=== PATIENT | female | born 1965 | race Caucasian/White ===

== ENCOUNTER 2020-03-03 09:46 | Emergency (ER) | payer OTHER, SELFPAY ==
--- NOTE | 2020-03-03 09:58 | ED.GENADULT ---
HPI - General Adult General Chief complaint: Skin/Abscess/Foreign Body Stated complaint: rash Time Seen by Provider: 03/03/20 10:00 Source: patient Mode of arrival: ambulatory Limitations: no limitations History of Present Illness HPI narrative: 55-year-old female patient presents to the [facility] with complaints of a rash to bilateral underarms, under bilateral breasts, and in the groin. Patient states the rash has been there for about a week and is very itchy. Patient denies coming into contact with anything that she is allergic to that she is aware of. Patient states she does have a dog at home and is up-to-date on shots. Patient denies any new lotions, soaps or detergents. 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 Denies any fevers, chest pain or shortness of breath. Patient states she has tried [id number] hydrocortisone cream and alcohol to help with the rash and it continues to spread and get worse. Related Data Home Medications Medication Instructions Recorded Confirmed clopidogrel 75 mg DAILY 03/03/20 03/03/20 metoprolol succinate 25 mg PO DAILY 03/03/20 03/03/20 simvastatin 20 mg DAILY 03/03/20 03/03/20 Allergies Allergy/AdvReac Type Severity Reaction Status Date / Time No Known Allergies Allergy Verified 03/03/20 09:51 Review of Systems Review of Systems: Narrative: CONSTITUTIONAL: Denies fever, chills, or sweats. EYES: Denies visual changes, redness, or discharge. ENT: Denies rhinorrhea, congestion, sore throat, or otalgia. CARDIOVASCULAR: Denies chest pain, palpitations, or edema. RESPIRATORY: Denies cough or dyspnea. GASTROINTESTINAL: Denies abdominal pain, nausea, vomiting, or diarrhea. GENITOURINARY: Denies dysuria or hematuria. SKIN: Positive rash with itching. MUSCULOSKELETAL: Denies back pain, joint pain, or myalgia. NEUROLOGIC: Denies headache, numbness, or weakness. PSYCHIATRIC: Denies anxiety or depression. [facility] Past Medical History Medical History (Updated 03/03/20 @ 10:11 by BRYN Antunez) GERD (gastroesophageal reflux disease) Hypercholesterolemia Hypertension Kidney stones Social History Social History (Updated 03/03/20 @ 10:00 by JULIETA Antunez Smoking status: Current every day smoker Gender identity (if verbalized by the patient): Female Comments At the time of my signature I agree with nursing past medical history, surgical, social, and family history. There is no relevant family history pertinent to the presenting complaint. Exam Narrative: Exam Narrative: GENERAL: Well-appearing, well-nourished, and in no acute distress. HEAD: Normocephalic, atraumatic. EYES: PERRLA and EOMI. ENT: Nares clear, no rhinorrhea or epistaxis. Mucous membranes moist. NECK: Supple. No lymphadenopathy CHEST: Clear to auscultation. No respiratory distress. HEART: Regular rate and rhythm. No murmur heard. Normal peripheral pulses. ABDOMEN: Soft, nontender, nondistended, normal active bowel sounds. EXTREMITIES: Normal range of motion. No edema. SKIN: Patient has circular raised papules noted to bilateral axilla, under bilateral breasts, in the folds of the groin area that extends up to the buttocks folds. The areas do appear slightly dry. Papules are various shapes anywhere from 1 cm to 2 cm. There is no open wounds or drainage noted. There is multiple satellite lesions noted. NEURO: No focal deficits. Alert and oriented x3. Course Vital Signs Vital signs: Vital Signs Temperature 36.4 C L 03/03/20 10:00 Pulse Rate 73 03/03/20 10:00 Respiratory Rate 16 03/03/20 10:00 Blood Pressure 147/83 H 03/03/20 10:00 Pulse Oximetry 100 03/03/20 10:00 Temperature 36.4 C L 03/03/20 10:00 Pulse Rate 73 03/03/20 10:00 Respiratory Rate 16 03/03/20 10:00 Blood Pressure 147/83 H 03/03/20 10:00 Pulse Oximetry 100 03/03/20 10:00 Vital sign
[2020-03-03 10:00] VITALS: BP 147/83; PULSE 73; RESP 16; TEMP 36.4; O2SAT 100
== END 2020-03-03 10:15 | disposition home or self-care (01) ==
PROVIDERS: Emergency Provider Nurse Practitioner Family
DX: B35.4 Tinea corporis (principal); I10 Essential (primary) hypertension; F17.200 Nicotine dependence, unspecified, uncomplicated
CPT/HCPCS: 99213; G0463

== ENCOUNTER 2020-03-21 12:36 | Emergency (ER) | payer OTHER, SELFPAY ==
--- NOTE | ~2020-03-21 | XR_ITS ---
EXAMINATION: XR hand RT min 3V INDICATION: Right hand pain after dog bite TECHNIQUE: Three views of the right hand are obtained. COMPARISON: None available FINDINGS: There is no fracture. The joint spaces are normal. Soft tissue swelling of the hand is seen surrounding the metacarpals. Soft tissue swelling is seen overlying the distal radius and ulna. IMPRESSION: 1. Soft tissue swelling overlying the metacarpals and distal radius and ulna without underlying osseo us abnormality. Reviewed, dictated and finalized at location A. IMPRESSION: 1. Soft tissue swelling overlying the metacarpals and distal radius and ulna wi thout underlying osseous abnormality.
--- NOTE | ~2020-03-21 | XR_ITS ---
EXAMINATION: XR forearm RT 2V INDICATION: Right forearm pain after dog bite TECHNIQUE: Two views of the right forearm are obtained. COMPARISON: None available FINDINGS: There is diffuse soft tissue swelling overlying the wrist as well as the metacarpals. No un derlying osseous abnormality is identified. Bone alignment at the wrist and elbow is normal. IMPRESSION: 1. Soft tissue swelling overlying the wrist and metacarpals without underlying osseous abnormality. Reviewed, dictated and finalized at location A.
[2020-03-21 12:39] VITALS: BP 196/94; PULSE 92; RESP 20; TEMP 37.3; O2SAT 97
--- NOTE | 2020-03-21 12:44 | ED.WOUNDLAC ---
HPI - Wound/Laceration General Chief Complaint: Wound/Laceration Stated Complaint: dog bite Time Seen by Provider: 03/21/20 12:43 History of Present Illness HPI narrative: Right hand and forearm were bitten by a bhutanese elizabeth shortly before arrival today. She reports severe pain in the hand and forearm. She has multiple small puncture wounds. Unsure when last tetanus shot was. Related Data Home Medications Medication Instructions Recorded Confirmed clopidogrel 75 mg DAILY 03/03/20 03/03/20 metoprolol succinate 25 mg PO DAILY 03/03/20 03/03/20 simvastatin 20 mg DAILY 03/03/20 03/03/20 Allergies Allergy/AdvReac Type Severity Reaction Status Date / Time No Known Allergies Allergy Verified 03/03/20 09:51 Review of Systems Review of Systems: All systems reviewed & are unremarkable except as noted in HPI and below PMFSH Past Medical History Medical History GERD (gastroesophageal reflux disease) Hypercholesterolemia Hypertension Kidney stones Social History Social History Smoking status: Current every day smoker Gender identity (if verbalized by the patient): Female Exam Const: General: healthy appearing, no acute distress and alert Orientation/consciousness: patient oriented x3 HENMT: Head: normal to inspection Resp: Effort & Inspection: normal respiratory effort Auscultation: clear to auscultation bilaterally Cardio: Rate: regular rate Rhythm: regular rhythm Other: 2+ right radial pulse Skin: Other: many small puncture wounds to the right hand and forearm Neuro: General: patient oriented x3, moves all extremities and CN's II-XI intact bilaterally Speech: normal speech Other: distal sensation intact Extrem: Other: extensive bruising t the right hand and forearm Course Vital Signs Vital signs: Vital Signs Temperature 37.3 C 03/21/20 12:39 Pulse Rate 92 03/21/20 12:39 Respiratory Rate 03/21/20 12:39 Blood Pressure 196/94 H 03/21/20 12:39 Pulse Oximetry 97 03/21/20 12:39 Temperature 37.3 C 03/21/20 12:39 Pulse Rate 86 03/21/20 14:05 Respiratory Rate 18 03/21/20 14:05 Blood Pressure 178/80 H 03/21/20 14:05 Pulse Oximetry 99 03/21/20 14:05 MDM - Wound/Laceration MDM Narrative Medical decision making narrative: No fracture Medical Records Attestation: I reviewed the patient's medical records. Imaging Data Radiologist's impression: ITS Impressions Forearm X-Ray 03/21/20 13:17 IMPRESSION: 1. Soft tissue swelling overlying the wrist and metacarpals without underlying osseous abnormality. Hand X-Ray 03/21/20 13:17 IMPRESSION: 1. Soft tissue swelling overlying the metacarpals and distal radius and ulna without underlying osseous abnormality. Discharge Plan Discharge Clinical Impression: Dog bite of right forearm Qualifiers: Encounter type: initial encounter Qualified Code(s): S51.851A - Open bite of right forearm, initial encounter Patient Disposition: Home, Self-Care Condition: Stable Instructions: Antibiotic Form, Animal Bite (ED) Prescriptions: New amoxicillin-pot clavulanate [Augmentin] 875-125 mg tablet 1 tablet PO Q12H Qty: 10 RF: 0 hydrocodone-acetaminophen [[place]] 5-325 mg tablet 1 tablet PO Q6H PRN (Reason: pain) Qty: 7 RF: 0 No Action clopidogrel 75 mg tablet 75 mg DAILY RF: 0 simvastatin 20 mg tablet 20 mg DAILY RF: 0 metoprolol succinate 25 mg tablet extended release 24 hr 25 mg PO DAILY RF: 0 Follow-up/Referrals: PHYSICIAN,MINE SAFETY DIRECTOR [Primary Care Provider] - Discharge Date/Time: 03/21/20 14:06
--- NOTE | 2020-03-21 12:47 | PC.NURSE ---
RINGS REMOVED FROM HAND VIA RN SHERI, WOUNDS CLEANSED WITH SOAP AND WATER.
[2020-03-21] MEDS: AMOXICILLIN/CLAVULANATE K 875-125 MG TAB 1 TABLET PO (13:23)
[2020-03-21] MEDS: TETANUS,DIPHTHERIA,AC PERTUSSIS ADULT (0.5 ML) BOOSTRIX IM (13:33)
[2020-03-21] MEDS: KETOROLAC 30 MG/ML VIAL (*BKC) IV PUSH (13:47)
[2020-03-21 14:05] VITALS: BP 178/80; PULSE 86; RESP 18; O2SAT 99
== END 2020-03-21 14:06 | disposition home or self-care (01) ==
PROVIDERS: Emergency Provider Emergency Medicine
DX: S51.851A Open bite of right forearm, initial encounter (principal); S61.451A Open bite of right hand, initial encounter; K21.9 Gastro-esophageal reflux disease without esophagitis; E78.00 Pure hypercholesterolemia, unspecified; I10 Essential (primary) hypertension; Z87.442 Personal history of urinary calculi; F17.200 Nicotine dependence, unspecified, uncomplicated; Z23 Encounter for immunization; W54.0XXA Bitten by dog, initial encounter
CPT/HCPCS: 73090; 73130; 90471; 90715; 96374; 99284; A9270; J1885

== ENCOUNTER 2021-04-09 15:39 | Emergency (ER) | payer OTHER, SELFPAY ==
[2021-04-09 15:58] VITALS: BP 138/78; PULSE 74; RESP 16; TEMP 36.8; O2SAT 100
--- NOTE | 2021-04-09 16:46 | ED_ITS ---
HPI - URI/Sore Throat General Chief Complaint: Upper Respiratory Infection Stated Complaint: Cough,Sore Throat History of Present Illness HPI Narrative: Patient request Covid testing after having taken a rapid antigen test, which was negative. Patient been symptomatic mild cough and sore throat for about half week . Remainder of patient HPI unobtainable because patient eloped before completion, at about one hour after arrival. Related Data Home Medications Medication Instructions Recorded Confirmed clopidogrel 75 mg DAILY 03/03/20 04/09/21 metoprolol succinate 25 mg PO DAILY 03/03/20 04/09/21 simvastatin 20 mg DAILY 03/03/20 04/09/21 Allergies Allergy/AdvReac Type Severity Reaction Status Date / Time No Known Allergies Allergy Verified 04/09/21 16:03 Review of Systems Review of Systems: ROS unobtainable: Yes unobtainable due to mental status (/ patient eloped ) [facility] Past Medical History Medical History (Updated 03/22/20 @ 00:00 by Gal Roque) GERD (gastroesophageal reflux disease) Hypercholesterolemia Hypertension Kidney stones Social History Social History Smoking status: Current every day smoker Gender identity (if verbalized by the patient): Female Comments Unobtainable due to patient eloped Exam Narrative: Unobtainable as patient eloped Course Vital Signs Vital signs: Vital Signs Temperature 98.2 F 04/09/21 15:58 Pulse Rate 74 04/09/21 15:58 Respiratory Rate 16 04/09/21 15:58 Blood Pressure 138/78 04/09/21 15:58 Pulse Oximetry 100 04/09/21 15:58 Temperature 98.2 F 04/09/21 15:58 Pulse Rate 74 04/09/21 15:58 Respiratory Rate 16 04/09/21 15:58 Blood Pressure 138/78 04/09/21 15:58 Pulse Oximetry 100 04/09/21 15:58 Discharge Plan Discharge Patient Disposition: Elopement After Seen by Prov Condition: Stable Prescriptions: No Action clopidogrel 75 mg tablet 75 mg DAILY RF: 0 simvastatin 20 mg tablet 20 mg DAILY RF: 0 metoprolol succinate 25 mg tablet extended release 24 hr 25 mg PO DAILY RF: 0 hydrocodone-acetaminophen [[place]] 5-325 mg tablet 1 tablet PO Q6H PRN (Reason: pain) Qty: 7 RF: 0 Follow-up/Referrals: PHYSICIAN,YOUTH CARE SPECIALIST [Primary Care Provider] -
--- NOTE | 2021-04-09 16:56 | PC.NURSE ---
PT REPORTS SHE IS LEAVING, STATES SHE IS TIRED OF WAITING. EXPLAINED MULTIPLE TIMES THAT THERE IS ONLY ONE PROVIDER AND HE WOULD BE IN SOON HE WAS AVAILABLE. PT DID NOT WANT TO WAIT.
== END 2021-04-09 16:45 | disposition left against medical advice (07) ==
PROVIDERS: Emergency Provider Internal Medicine Hematology & Oncology
DX: R05 Cough (principal); J02.9 Acute pharyngitis, unspecified; K21.9 Gastro-esophageal reflux disease without esophagitis; E78.00 Pure hypercholesterolemia, unspecified; I10 Essential (primary) hypertension; F17.200 Nicotine dependence, unspecified, uncomplicated
CPT/HCPCS: 99211; G0463

== ENCOUNTER 2024-08-15 13:46 | Emergency (ER) | payer OTHER, SELFPAY ==
--- NOTE | 2024-08-15 13:49 | ED.URI ---
HPI - URI/Sore Throat General Chief Complaint: Upper Respiratory Infection Stated Complaint: cough,congestion Time Seen by Provider: 08/15/24 14:11 Source: patient and RN notes reviewed Mode of arrival: ambulatory Limitations: no limitations History of Present Illness HPI Narrative: 59-year-old female with history of smoking with 3 week history of cough. She reports productive cough, shortness of breath and sinus congestion for 3 weeks. She reports she saw her hemstitching machine operator who did an EKG and blood work which were all normal. MD elicited complaint: cough Related Data Home Medications ?Medication ?Instructions ?Recorded ?Confirmed ?Last Taken ?Type clopidogrel 75 mg tablet 75 mg DAILY 03/03/20 04/09/21 Unknown History metoprolol succinate 25 mg 25 mg PO DAILY 03/03/20 04/09/21 Unknown History tablet,extended release 24 hr simvastatin 20 mg tablet 20 mg DAILY 03/03/20 04/09/21 Unknown History nitroglycerin 0.4 mg sublingual mg 08/15/24 Unknown History tablet rosuvastatin 10 mg tablet mg 08/15/24 Unknown History Allergies Allergy/AdvReac Type Severity Reaction Status Date / Time No Known Allergies Allergy Verified 08/15/24 13:58 Review of Systems Review of Systems: CONSTITUTIONAL: Denies malaise, chills, sweats, or fever. EYES: Denies visual changes, redness, or discharge. ENT: Reports rhinorrhea, congestion. Denies sinus pain, otalgia and sore throat. CARDIOVASCULAR: Denies chest pain, palpitations, or edema. RESPIRATORY: Reports cough, dyspnea. GASTROINTESTINAL: Denies abdominal pain, nausea, vomiting, diarrhea SKIN: Denies rash or itching. MUSCULOSKELETAL: Denies myalgia. NEUROLOGIC: Denies headache. All systems reviewed & are unremarkable except as noted in HPI and below PMFSH Past Medical History Medical History (Updated 08/15/24 @ 14:20 by Heydi Boob NP) Kidney stones GERD (gastroesophageal reflux disease) Hypertension Hypercholesterolemia Social History Social History Smoking status: Current every day smoker Gender identity (if verbalized by the patient): Female Comments At time of signature, agree with nursing past medical, surgical, social and family history. There is no relevant family history pertinent to the presenting complaint Exam Narrative: GENERAL: Well-appearing, well-nourished, and in no acute distress. HEAD: Normocephalic EYES: PERRLA, conjunctivae clear ENT: Nares clear. Mucous membranes moist. TM pearly scruggs with dull light reflex bilaterally; no tragal tenderness. Oropharynx not erythematous without lesions. Tonsils not enlarged and without exudate, no drooling, no hoarseness, no trismus, uvula midline. NECK: Supple. No lymphadenopathy CHEST: Clear to auscultation, breath sounds equal. Upper airway wheeze noted. No Rhonchi, rales, or stridor. No respiratory distress, speaks in full sentences. HEART: Regular rate and rhythm. No murmur heard. SKIN: Warm, dry, no rash. NEURO: Alert and oriented x3. PSYCH: Normal mood and affect Course Course Emergency Course: Patient is aware of diagnosis, understands and agrees to treatment plan. Anticipatory guidance given. Patient agrees to follow-up as directed and is aware of reasons to seek care at the emergency department. Portions of this record may have been created with voice recognition software Level of Care: Express Care Visit Vital Signs Vital signs: Reviewed. MDM - URI/Sore Throat MDM Narrative Medical decision making narrative: Differential diagnosis considered: Larios virus, strep pharyngitis, allergic rhinitis, upper respiratory tract infection, sinusitis, rhinosinusitis, nasopharyngitis. viral pharyngitis, otitis media, otitis externa, pneumonia, bronchitis, viral cough syndrome, viral syndrome, and influenza. Exam findings show no acute concerns or changes; patient is non-toxic appearing and is in no distress. Patient is appropriate for outpatient treatment and follow-up. Lab Data Attestation: I reviewed the patient's lab results. Critical Care Time Critical Care Time Critical Care Time: No Discharge Plan Discharge Clinical Impression: Lower respiratory tract infection Patient Disposition: Home, Self-Care Condition: Stable Instructions: How to Use a Metered-Dose Inhaler (ED) Additional Instructions: Take medication as prescribed Recommend antihistamine such as Benadryl at night time and Zyrtec or Katey during the day Use inhaler as needed for cough, wheezing, shortness of breath or chest tightness. Also, recommend symptomatic treatment includes: rest, fluids, and increase humidity of the air at home. Recommend Acetaminophen as directed on the bottle to reduce fever, pain, headache. Avoid smoking/second-hand smoke. Please schedule a follow-up visit with your personal physician for further evaluation and treatment within 3-5days. Including recheck and discussion of your blood pressure. If your symptoms persist, change or worsen significantly before you can contact your personal physician then please, without delay, go to the emergency department for further evaluation. Patient Language: Malay Prescriptions: New azithromycin [Zithromax Z-Srinivasan] 250 mg tablet See Rx Instructions .ROUTE .COMPLEX Qty: 6 0RF Rx Instructions: take 500 mg today (day 1), then 250 mg for 4 days (days 2-5) prednisone 20 mg tablet 40 mg PO DAILY 5 Days Qty: 10 0RF albuterol sulfate 90 mcg/actuation HFA aerosol inhaler 2 puff INHALATION QID PRN (Reason: shortness of breath or wheezing) Qty: 8.5 0RF No Action clopidogrel 75 mg tablet 75 mg DAILY simvastatin 20 mg tablet 20 mg DAILY metoprolol succinate 25 mg tablet extended release 24 hr 25 mg PO DAILY nitroglycerin 0.4 mg tablet, sublingual rosuvastatin 10 mg tablet Follow-up/Referrals: PHYSICIAN,BULB TESTER [Primary Care Provider] - Time of Disposition: 14:20
[2024-08-15 13:57] VITALS: BP 142/90; PULSE 84; RESP 18; TEMP 36.6; O2SAT 95
== END 2024-08-15 14:25 | disposition home or self-care (01) ==
PROVIDERS: Emergency Provider Nurse Practitioner
DX: J22 Unspecified acute lower respiratory infection (principal); F17.200 Nicotine dependence, unspecified, uncomplicated; I10 Essential (primary) hypertension; E78.00 Pure hypercholesterolemia, unspecified; K21.9 Gastro-esophageal reflux disease without esophagitis
CPT/HCPCS: 99213; G0463

== ENCOUNTER 2025-02-06 13:16 | Inpatient (IN) | payer OTHER, SELFPAY ==
[2025-02-06] VITALS (11 sets, daily range): BP systolic 134–163; BP diastolic 68–98; PULSE 53–88; RESP 12–19; TEMP 36.4–37; O2SAT 93–96; BMI 21.8
--- NOTE | ~2025-02-06 | XR_ITS ---
EXAM/PROCEDURE: XR chest 2V - 02/06/2025 14:10 CDT HISTORY: 60 years old Female with cp TECHNIQUE: Two view(s) of the chest. COMPARISON: None available. FINDINGS: LUNGS/ PLEURA: Mild vascular congestion and bilateral alveolar opacities. Infection cannot be exclude d. Mild elevation of right hemidiaphragm causing compressive atelectasis along with right basilar sca rring. HEART/ MEDIASTINUM: Heart appears normal in size. BONES: No acute osseous abnormality. OTHER: Visualized upper abdomen is unremarkable. IMPRESSION: Mild vascular congestion and bilateral alveolar opacities. Infection cannot be excluded. Short-term f ollow-up chest radiograph is recommended after appropriate clinical therapy to document resolution. Reviewed, dictated and finalized at location A. IMPRESSION: Mild vascular congestion and bilateral alveolar opacities. Infection cannot be excluded. Short-term follow-up chest radiograph is recommended after appropriat e clinical therapy to document resolution.
--- NOTE | ~2025-02-06 | CT_ITS ---
CTA chest PE protocol Ordering provider: Larry Castanon MD History: 60 years Female with . Exertional shortness of breath . Comparison: None. Technique: CT angiogram chest was performed following timed intravenous injection of contrast. Thin s lice axial images and reformatted coronal images were obtained. Three dimensional reformatted images of the chest were also obtained using a [employer] workstation. . Automated exposure control and iterati ve reconstruction technique were employed. The dose-length product was 337.42 mGy-cm. 100 mL Omnipaqu e 350 was given IV Findings: PULMONARY ARTERIES: No pulmonary embolus. VISUALIZED THORACIC INLET: Normal. MEDIASTINUM: Aorta/coronary arteries: Mild atheromatous disease. Heart/other: The heart is not enlarged. Lymph nodes: Soft tissue mass is seen in the azygos vein area, paratracheal area and subcarinal area which may indicate a mass or lymphadenopathy. This mass measures 6.2 x 3.2 x 6.8 cm. Slight narrowing of the trachea is seen in the area . Narrowing of the right main pulmonary artery is also noted. LUNGS: Tree-in-bud appearance seen in the right upper lobe suggestive of infection. Groundglass nodules are less likely. Pneumonia versus atelectasis versus fibrotic changes in the right lower lobe is seen. Un derlying mass cannot be excluded with extension to the area of the esophagus. None opacification of the veins is seen in the area which may indicate thrombosis. . No pneumothorax. VISUALIZED UPPER ABDOMEN: Sliding hiatus hernia. Otherwise, the visualized upper abdomen is normal. MUSCULOSKELETAL: Soft tissues: The superficial soft tissues are normal. Bones: Age appropriate degenerative changes of the spine. IMPRESSION: 1. No pulmonary embolism. 2. Mass seen in the right paratracheal and subcarinal areas with extension to the right hilum. Furth er evaluation advised. The mass is occluding the right main bronchus and causing some compression of the right pulmonary artery. 3. Atelectasis versus pneumonia versus fibrotic changes in the right lower lobe with minimal opacifi cation of the bases suggestive of thrombosis. 4. Focal areas of tree-in-bud appearance in the right upper lobe suggestive of infection. Follow-up advised. 5. Sliding hiatus hernia. Reviewed, dictated and finalized at location A. IMPRESSION: 1. No pulmonary embolism. 2. Mass seen in the right paratracheal and subcarinal areas with extension to the right hilum. Further evaluation advised. The mass is occluding the right ma in bronchus and causing some compression of the right pulmonary artery. 3. Atelectasis versus pneumonia versus fibrotic changes in the right lower lob e with minimal opacification of the bases suggestive of thrombosis. 4. Focal areas of tree-in-bud appearance in the right upper lobe suggestive of infection. Follow-up advised. 5. Sliding hiatus hernia.
--- NOTE | 2025-02-06 13:22 | ECG_ITS ---
Test Date: 2025-02-06 13:31:21 Measurements Intervals [place] Rate: 71 P: 64 AK: 146 QRS: 77 QRSD: 75 T: 81 QT: 391 QTc: 425 Interpretive Statements SINUS RHYTHM MODERATE ST DEPRESSION [0.05+ mV ST DEPRESSION] No previous ECG available for comparison Electronically Signed On 02-07-2025 11:35:29 CDT by Matthew Rocha M.D.
--- OUTSIDE RECORDS SUMMARY | 2025-02-06 13:28 | XMS_ITS | Referral Summary ---
Author Organization [facility] [address] Address [address] [place] [address] Care Team Providers Care Supervisor Knitting Name Role Phone Emily Calderon Primary Care Provider [phone] Allergies No known active allergies Medications aspirin (ASPIR-LOW) 81 mg tablet take 1 Tablet by oral route every day 0 0 02/04/20 16 Active nitroglycerin (NITROSTAT) 0.4 mg SL tabletIndicati ons:Coronary artery disease involving [place] coronary artery of [place] heart without angina pectoris Place 1 tablet (0.4 mg total) under the tongue every 5 (five) minutes as needed for chest pain Up to 3 doses, then call ambulance 25 tablet 3 08/09/19 25 Active multivitamin tabletIndicati ons:Vitamin Deficiency Prevention Take 1 tablet by mouth daily Active metoprolol XL (TOPROL-XL) 25 mg extended release tablet Take 1 tablet by mouth once daily 90 tablet 12/07/19 25 Active clopidogreL (PLAVIX) 75 mg tablet Take 1 tablet by mouth once daily 90 tablet 1 01/22/20 25 Active rosuvastatin (CRESTOR) 10 mg tablet Take 1 tablet by mouth once daily 90 tablet 1 01/30/20 25 Active clopidogreL (PLAVIX) 75 mg tablet Take 1 tablet by mouth once daily 90 tablet 10/30/19 25 025 Discontinued rosuvastatin (CRESTOR) 10 mg tablet Take 1 tablet by mouth once daily 90 tablet 11/07/19 25 025 Discontinued Active Problems Problem Noted Date Diagnosed Date Coronary artery disease invo lving [place] coronary artery of [place] heart without angina pectoris 08/04/2017 History of coronary artery stent placement 08/04 Immunizations Immunization Administration Dates Next Due Pfizer SARS-CoV-2 Monovalent Vaccination (12+ Yrs) PURPLE 05/22/2021 Social History Tobacco Use Types Packs/Day Years Used Date Smoking Tobacco: Light Smoker Smokeless Tobacco: Never Tobacco Cessation:Ready to Q uit: Not Asked; Counseling Given: Not Answered Comments:Smoking History Packs/day: 8 Cigarettes Alcohol Use Standard Drinks/Week Comments No 0 (1 standard drink = 0.6 oz pur e alcohol) Comments Unknown Sex and Gender Information Value Date Recorded Sex Assigned at Not on file Legal Sex Female 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 Gender Identity Not on file Sexual Orientation Not on file Last Filed Vital Signs Vital Sign Reading Time Taken Comments Blood Pressure 130/72 08/09/2024 10:59 AM LINDERMAN OPERATOR Pulse 76 08/09/2024 10:59 AM LINDERMAN OPERATOR Temperature - - Respiratory Rate - - Oxygen Saturation 95% 08/09/2024 10:59 AM LINDERMAN OPERATOR Inhaled Oxygen Concentration - - Weight 85.7 kg (189 lb) 08/09/2024 10:59 AM LINDERMAN OPERATOR Height 180.3 cm (5' 11) 08/09/2024 10:59 AM LINDERMAN OPERATOR Body Mass Index 26.36 08/09/2024 10:59 AM LINDERMAN OPERATOR Plan of Treatment Not on file Insurance [facility] Care Teams Supervisor Knitting Relationship Specialty Start Date End Date Emily Calderon PA [facility] [place] [address] PCP - General Physician Crusher Setter 05/31/23
--- OUTSIDE RECORDS SUMMARY | 2025-02-06 13:28 | XMS_ITS | Clinical Summary ---
Author Organization [facility] Address [address] [place], [place] [id number] Care Team Providers Care Tool And Die Maker Name Role Phone Unavailable Primary Care Provider Unavailabl e Social History Tobacco Use Types Packs/Day Years Used Date Smoking Tobacco: Never Assessed Comments Unknown Sex and Gender Information Value Date Recorded Sex Assigned at Not on file Legal Sex Female 7:11 PM CDT Gender Identity Not on file Sexual Orientation Not on file Plan of Treatment Health Maintenance Due Date Last Done Comments Cervical Cancer Screening Pa p Smear (Age 30 to 64) Every 3 Years 1964 Colorectal Cancer Screening Colonoscopy (10 Years) 1964 Annual Physical 01/08/1967 Hepatitis C 01/08/1982 DTaP, Tdap and Td Vaccines ( 1 - Tdap) 01/08/1983 Cervical Cancer Screening Pa p with HPV Testing (Age 30 to 64) Every 5 Years 01/08/1994 Cervical Cancer Screening with HPV 01/08/1994 Mammogram Screening 2004 Pneumococcal Vaccine: 50+ Ye ars (1 of 1 - PCV) 01/08/2014 Zoster Vaccines (1 of 2) 01/08/2014 COVID-19 Vaccine (2023-2 5 season) 2024 RSV Immunization or 60+ Years (1 - 1-dose 75+ series) 01/08/2039 Meningococcal B Vaccine Aged Out No l onger eligible based on patient's age to complete this topic Meningococcal Vaccine Aged Out No martinez sonya eligible based on patient's age to complete this topic RSV Immunizations Under 20 Months Aged Out No longer eligible based on patient's age to complete this topic
--- OUTSIDE RECORDS SUMMARY | 2025-02-06 13:28 | XMS_ITS | Clinical Summary ---
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 Gender Identity Not on file Sexual Orientation Not on file Plan of Treatment Health Maintenance Due Date Last Done Comments Hepatitis C Virus (HCV) Screening 1965 Pap Smear 01/08/1985 Cervical Cancer Screening (CCS) 01/08/1994 HPV/Cotest 01/08/1994 Cologuard 01/08/2009 Colonoscopy 01/08/2009 Colorectal Cancer Screening 01/08/2009 Immunochemical Fecal Occult Blood 01/08/2009 Zoster Immunization (1 of 2) 01/08/2014 Pneumococcal Immunization (5 0+ years) (2 of 2 - PPSV23) 04/29/2018 04/29/2017 SARS-COV-2 Immunization ( - season) 2024 10/19/2020, 09/28/2020 Influenza Immunization (#1) 04/01/202505/02, 04/29/2017 Respiratory Syncytial Virus (RSV) Immunization (Adult) (1 - 1-dose 75+ series) 01/08/2039 Pneumococcal Immunization Combined Discontinued 04/29/2017 DTaP/Tdap/Td Immunization Discontinued 2019, 05/03/2017 TdaP Immunization Completed 03/21/2020, 05/03/2017 Hepatitis B Immunization Aged Out No longer eligible based on patient's age to complete this topic Human Papillomavirus (HPV) Immunization Aged Out No longer eligible based on patient's age to complete this topic Meningococcal Immunization (ACWY) Aged Out No longer eligible based on patient's age to complete this topic Rotavirus Immunization Aged Out No lo nger eligible based on patient's age to complete this topic
--- OUTSIDE RECORDS SUMMARY | 2025-02-06 13:28 | XMS_ITS | Data Portability ---
Author Organization Rachel MOSS Address [address] [place] [address] Assessment No assessment recorded. Plan of Treatment Reminders Order Date Submit Date Provider Last Modified By Organization Details Last Modified Time Details Appointments None recorded . Lab lipid panel, serum 2022 023 ANNABELLA CAMPO, Jamison Nguyen, [facility] [address], [place], [address], 06:17:54 HbA1c (hemoglo bin A1c), blood 2022 023 ANNABELLA ALBER, Jamison rod Nguyen, [address], [place], [address], 3 13:10:36 CMP, serum or plasma 2022 023 ANNABELLA CAMPO, Jamison rod Nguyen, [facility] [address], [place], [address], 3 06:17:54 TSH, ultra-se nsitive, serum 2022 023 ANNABELLA CAMPO, Jamison rod Nguyen, [address], [place], [address], 3 13:10:35 CBC w/ auto diff 2022 023 ANNABELLA ALBER, Jamison rod Nguyen, [facility] [address], [place], [address], 3 06:17:55 vitamin D, 25-hydro xy, total, serum 2022 023 ANNABELLA CAMPO, Jamison Nguyen, [address], [place], [address], 3 13:10:37 pap, IG + HPV, cervical 2022 023 ANNABELLA [facility], Jamison Nguyen, [address], [place], [address], 3 10:16:12 pap, IG + reflex HR HPV (16+18) 2016 017 ANNABELLA GARZA, Jamison Nguyen, [address], [place], [address], 7 08:21:09 lipid panel, serum 2016 017 [facility], Jamison Nguyen, [address], [place], [address], 7 10:30:54 CMP, serum or plasma 2016 017 ANNABELLA GARZA, Jamison Nguyen, [address], [place], [address], 7 10:30:54 TSH, ultra-se nsitive, serum 2016 017 [facility]A [facility], Jamison rod Nguyen, [address], [place], [address], 7 10:30:55 lipid panel, serum 2016 017 ANN[facility]ELLA [facility], Jamison Nguyen, [address], [place], [address], 7 12:04:40 TSH, ultra-se nsitive, serum 2016 017 [facility], [address] [facility], [address], [place], [address], 7 12:04:41 CMP, serum or plasma 2016 017 [facility], [address] [facility], [address], [place], [address], 7 12:04:42 Referral colonosc opy referral 2016 017 ATHENAFAX Not available 7 13:14:[address] referral - Please eval and treat 51 year old female with four year history of GERD and non-bloo dy emesis. 2016 017 ATHENAFAX Not available 7 13:13:59 Procedures None recorded . Surgeries None recorded . Imaging MAMMO, screenin g, digital, bilatera l - Prior abnormal mammogra m back in 2015, asymmetr y noted on the R breast 2022 023 [facility] [place] [place] [place] [address], [address] [place] [address] [address], [place], [address], 3 13:31:08 Medication Orders albutero l sulfate HFA 90 mcg/actu ation aerosol inhaler 2022 023 [facility], [address] [place], [address], 3 09:16:51 naproxen 500 mg tablet 2022 023 [facility], [facility], [place], [address], 3 09:06:20 amoxicil nadira 875 mg-potas sium clavulan ate 125 mg tablet 2016 017 Count includes the [facility], [address] [place], [address], 3 08:35:18 Flonase Allergy Relief 50 mcg/actu ation nasal spray,mccabe spension 2016 017 [facility], [address] [place], [address], 3 08:36:09 Kenalog 40 mg/mL suspensi on for injectio n 2016 017 renedelacruzma Not available 3 08:35:54 omeprazo le 20 mg capsule, delayed release 2016 017 Count includes the [facility], [address] [place], [address], 3 08:36:28 Patient TargetsNo targets recorded. Patient Instructions Encounter Date Encounter Id Patient Instructions Last Modified By Organization Details Last Modified Time 03/01/2023 [id number] A healthy lifestyle: care instructions Not available 03/01/2023 09:47:53 learning about menopause Not available 03/01/2023 09:50:33 hot flashes duri ng menopause: care instructions Not available 03/01/2023 09:50:33 preventing osteoporosis: care instructions Not available 03/01/2023 09:50:33 04/29/2023 [id number] A healthy lifestyle: care instructions Not available 04/29/2023 09:05:56 Quitting Tobacco : Care Instructions Not available 04/29/2023 09:21:46 Learning About Benefits of Quitting Smoking Not available 04/29/2023 09:21:46 back pain: care instructions Not available 04/29/2023 09:20:58 sciatica: care instructions Not available 04/29/2023 09:20:58 piriformis syndrome: care instructions Not available 04/29/2023 09:20:58 piriformis syndrome: exercises Not available 04/29/2023 09:20:58 sciatica: exercises Not available 04/29/2023 09:20:58 acute low back pain: exercises Not available 04/29/2023 09:20:58 human papillomavirus (HPV): care instructions Not available 04/29/2023 09:05:56 HPV (human papillomavirus) vaccine: what you need to know Not available 04/29/2023 09:05:57 learning about menopause Not available 04/29/2023 09:05:56 hot flashes duri ng menopause: care instructions Not available 04/29/2023 09:05:56 preventing osteoporosis: care instructions Not available 04/29/2023 09:05:56 Reason for Referral Please eval and treat 51 yea r old female with four year history of GERD and non-bloody emesis. Referring Physician: Carlos Garcia [employer], Encounter Date: 09/27/2016 Colonoscopy Referral for Scr eening colonoscopy Referring Physician: Carlos Garcia [employer], Encounter Date: 09/27/2016 Results Created Date Observation Date Name Description Value Unit Range Abnormal Flag Note LastModifiedBy Organization Detail LastModifiedTime 01/14/20 17 01/17/2017 pap, IG + refle x HR HPV (16+1 8) diagnosis: COMMEN T NEGAT CAMMIE FOR INTRA EPITH ELIAL LESJESSICA N AND NAN CRABTREE . Not Available [facility] ([facility]) [address] [place], [address], 01/20/2017 08:21:09 01/14/20 17 01/17/2017 pap, IG + refle x HR HPV (16+1 8) specimen adequacy: COMMEN T SATIS FACTO RY FOR EVALU ATION . ENDOC ERVIC AL AND/O R SQUAM OUS METAP LASTI C CELLS (ENDO CERVI DINAH COMPO NENT) ARE PRESE NT. Not Available [facility] ([facility]) [address] [place], [address], 01/20/2017 08:21:09 01/14/20 17 01/17/2017 pap, IG + refle x HR HPV (16+1 8) clinician provided ICD10: OSWALD Salas Z01.4 19 I10 Not Available [facility] ([facility]) [address] [place], [address], 01/20/2017 08:21:09 01/14/20 17 01/17/2017 pap, IG + refle x HR HPV (16+1 8) performed by: OSWALD CARLISLE , MARISOL Salas (ASCP ) Not Available [facility] ([facility]) [address] [place], [address], 01/20/2017 08:21:09 01/14/20 17 01/17/2017 pap, IG + refle x HR HPV (16+1 8) . . Not Available [facility] ([facility]) [address] [place], [address], 01/20/2017 08:21:09 01/14/2001/17/2017 pap, IG + refle x HR HPV (16+1 8) note: OSWALD Salas THE PAP SMEAR IS A SCREE GORAN TEST DESIG ANGIE TO AID IN THE DETEC TION OF CECE LIGNA NT AND MALIG NANT CONDI TIONS OF THE UTERI NE CERVI X. IT IS NOT A DIAGN OSTIC PROCE DURE AND SHOUL D NOT BE USED THE SOLE MEANS OF DETEC TING CERVI DINAH CANCE R. BOTH FALSE -POSI TIVE AND FALSE -NEGA TIVE REPOR TS DO OCCUR . Not Available [facility] ([facility]) [address] [place], [address], 01/20/2017 08:21:09 01/14/2001/17/2017 pap, IG + refle x HR HPV (16+1 8) test methodology: OSWALD Salas THIS LIQUI D BASED THINP REP(R ) PAP TEST WAS SCREE ANGIE WITH THE USE OF AN IMAGE GUIDE Fer Simmons. Not Available [facility] ([facility]) [address] [facility] [place], [address], 01/20/2017 08:21:09 01/14/20 17 01/18/2017 pap, IG + refle x HR HPV (16+1 8) HPV, high-risk POSITI VE negati ve abnormal THIS HIGH- RISK HPV TEST DETEC TS THIRT EEN HIGH- RISK TYPES (16/1 8/31/ 33/35 /39/4 5/51/ 52/56 /58/5 9/68) WITHO UT DIFFE RENTI ATION . Not Available [facility] ([facility]) [address] [place], [address], 01/20/2017 08:21:09 01/14/20 17 01/20/2017 pap, IG + refle x HR HPV (16+1 8) HPV genotype, 16 NEGATI VE negati ve Not Available [facility] ([facility]) [address] [place], [address], 01/20/2017 08:21:09 01/14/20 17 01/20/2017 pap, IG + refle x HR HPV (16+1 8) HPV genotype, 18 NEGATI VE negati ve Not Available [facility] ([facility]) [address] [place], [address], 01/20/2017 08:21:09 03/01/20 23 03/03/2023 IGP, APTIM A HPV HPV aptima Positi ve negati ve abnormal This nucle ic acid ampli ficat ion test detec ts fourt een high- risk HPV types (16,1 8,31, 33,35 ,39,4 5,51, 52,56 ,58,5 9,66, 68) witho ut diffe renti ation . Not Available [facility] ([facility]) [address] [place], [address], 03/04/2023 10:16:12 03/01/20 23 03/04/2023 IGP, APTIM A HPV diagnosis: Commen t NEGAT CAMMIE FOR INTRA EPITH ELIAL LESIO N OR MALIG LEYDA . Not Available [facility] ([facility]) [address] [place], [address], 03/04/2023 10:16:12 03/01/20 23 03/04/2023 IGP, APTIM A HPV specimen adequacy: Oswald salas Satis facto ry for evalu ation . Endoc ervic al and/o r squam ous metap lasti c cells (endo cervi dinah compo nent) are prese nt. Not Available [facility] ([facility]) [address] [place], [address], 03/04/2023 10:16:12 03/01/20 23 03/04/2023 IGP, APTIM A HPV clinician provided ICD10: Oswald salas Z01.4 19 Not Available [facility] ([facility]) [address] [place], [address], 03/04/2023 10:16:12 03/01/20 23 03/04/2023 IGP, APTIM A HPV performed by: Marisol Campos (ASCP ) Not Available [facility] ([facility]) [address] [place], [address], 03/04/2023 10:16:12 03/01/20 23 03/04/2023 IGP, APTIM A HPV . . Not Available [facility] ([facility]) [address] [place], [address], 03/04/2023 10:16:12 03/01/20 23 03/04/2023 IGP, APTIM A HPV note: Oswald salas The Pap smear is a scree goran test desig angie to aid in the detec tion of cece ligna nt and malig nant condi tions of the uteri ne cervi x. It is not a diagn ostic proce dure and shoul d not be used as the sole means of detec ting cervi dinah cance r. Both false -posi tive and false -nega tive repor ts do occur . Not Available [facility] ([facility]) [address] [facility], [place], [address], 03/04/2023 10:16:12 03/01/20 23 03/04/2023 IGP, APTIM A HPV test methodology: Commen t This liqui d based ThinP rep(R ) pap test was connore angie with the use of an image guide d syste m. Not Available [facility] ([facility]) [address] [facility], [place], [address], 03/04/2023 10:16:12 05/18/2005/18/2023 LIPID PANEL cholesterol, total 215 mg/dL 100-19 9 above high normal Not Available [facility] [address] [place] [address], [address], 05/19/2023 06:17:54 05/18/2005/18/2023 LIPID PANEL triglyceride s 119 mg/dL 0-149 Not Available [facility] [address] [place], [address], 05/19/2023 06:17:54 05/18/2005/18/2023 LIPID PANEL HDL cholesterol 61 mg/dL 40-999 Not Available [facility] [address] [place], [address], 05/19/2023 06:17:54 05/18/2005/18/2023 LIPID PANEL VLDL cholesterol dinah 24 mg/dL 5-40 Not Available [facility] [address] [place], [address], 05/19/2023 06:17:54 05/18/2005/18/2023 LIPID PANEL LDL chol calc ([facility]) 147 mg/dL 0-99 above high normal Not Available [facility] [address] [place], [address], 05/19/2023 06:17:54 05/18/20 23 05/18/2023 COMP. METAB OLIC PANEL (14) glucose 100 mg/dL 70-99 above high normal Not Available [facility] [address] [place], [address], 05/19/2023 06:17:54 05/18/20 23 05/18/2023 COMP. METAB OLIC PANEL (14) BUN 14 mg/dL 6-24 Not Available [facility] [address] [place], [address], 05/19/2023 06:17:54 05/18/2005/18/2023 COMP. METAB OLIC PANEL (14) creatinine 1.22 mg/dL 0.76-1 .27 Not Available [facility] [address] [place] [address], [address], 05/19/2023 06:17:54 05/18/2005/18/2023 COMP. METAB OLIC PANEL (14) eGFR 51 >=60 below low normal Units for eGFR value s are mL/mi n/1.7 3 The eGFR Calcu latio n has not been valid ated for patie nts under the age of 18. If test resul ts are displ ayed for a patie nt under the age of 18, disre zuly that value . Not Available [facility] [address] [place], [address], 05/19/2023 06:17:54 05/18/20 23 05/18/2023 COMP. METAB OLIC PANEL (14) BUN/creatini ne ratio 12 9-23 Not Available [facility] [address] [place], [address], 05/19/2023 06:17:54 05/18/20 23 05/18/2023 COMP. METAB OLIC PANEL (14) sodium 136 mmol/ L 134-14 4 Not Available [facility] [address] [place], [address], 05/19/2023 06:17:54 05/18/20 23 05/18/2023 COMP. METAB OLIC PANEL (14) potassium 5.5 mmol/ L 3.5-5. 2 above high normal Not Available [facility] [address] [place], [address], 05/19/2023 06:17:54 05/18/2005/18/2023 COMP. METAB OLIC PANEL (14) chloride 99 mmol/ L 96-106 Not Available [facility] [address] [place], [address], 05/19/2023 06:17:54 05/18/2005/18/2023 COMP. METAB OLIC PANEL (14) carbon dioxide, total 26 mmol/ L 20-29 Not Available [facility] [address] [place], [address], 05/19/2023 06:17:54 05/18/2005/18/2023 COMP. METAB OLIC PANEL (14) calcium 10.0 mg/dL 8.7-10 .2 Not Available [facility] [address] [place], [address], 05/19/2023 06:17:54 05/18/20 23 05/18/2023 COMP. METAB OLIC PANEL (14) protein, total 7.2 g/dL 6.0-8. 5 Not Available [facility] [address] [place], [address], 05/19/2023 06:17:54 05/18/2005/18/2023 COMP. METAB OLIC PANEL (14) albumin 4.9 g/dL 3.8-4. 9 Not Available [facility] [address] [place], [address], 05/19/2023 06:17:54 05/18/20 23 05/18/2023 COMP. METAB OLIC PANEL (14) globulin, total 2.3 g/dL 1.5-4. 5 Not Available [facility] [address] [place], [address], 05/19/2023 06:17:54 05/18/20 23 05/18/2023 COMP. METAB OLIC PANEL (14) A/G ratio 2.0 1.2-2. 2 Not Available [facility] [address] [place], [address], 05/19/2023 06:17:54 05/18/2005/18/2023 COMP. METAB OLIC PANEL (14) bilirubin, total 0.3 mg/dL 0.0-1. 2 Not Available [facility] [address] [place], [address], 05/19/2023 06:17:54 05/18/2005/18/2023 COMP. METAB OLIC PANEL (14) alkaline phosphatase 95 IU/L 44-121 Not Available [facility] [address] [place], [address], 05/19/2023 06:17:54 05/18/2005/18/2023 COMP. METAB OLIC PANEL (14) AST (SGOT) 17 IU/L 0-40 Not Available [facility] [address] [place], [address], 05/19/2023 06:17:54 05/18/20 23 05/18/2023 COMP. METAB OLIC PANEL (14) ALT (SGPT) 18 IU/L 0-32 Not Available [facility] [address] [place], [address], 05/19/2023 06:17:54 05/18/2005/18/2023 CBC WITH DIFFE RENTI AL/PL ATELE T WBC 8.3 x10e3 /uL 3.4-10 .8 Not Available [facility] [address] [place] [address], [address], 05/19/2023 06:17:55 05/18/2005/18/2023 CBC WITH DIFFE RENTI AL/PL ATELE T RBC 4.62 x10e6 /uL 3.77-5 .28 Not Available [facility] [address] [place], [address], 05/19/2023 06:17:55 05/18/2005/18/2023 CBC WITH DIFFE RENTI AL/PL ATELE T hemoglobin 14.2 g/dL 11.1-1 5.9 Not Available [facility] [address] [place], [address], 05/19/2023 06:17:55 05/18/2005/18/2023 CBC WITH DIFFE RENTI AL/PL ATELE T hematocrit 45.4 % 34.0-4 6.6 Not Available [facility] [address] [place], [address], 05/19/2023 06:17:55 05/18/2005/18/2023 CBC WITH DIFFE RENTI AL/PL ATELE T MCV 98 fL 79-97 above high normal Not Available [facility] [address] [place], [address], 05/19/2023 06:17:55 05/18/2005/18/2023 CBC WITH DIFFE RENTI AL/PL ATELE T MCH 30.7 pg 26.6-3 3.0 Not Available [facility] [address] [place], [address], 05/19/2023 06:17:55 05/18/2005/18/2023 CBC WITH DIFFE RENTI AL/PL ATELE T MCHC 31.3 g/dL 31.5-3 5.7 below low normal Not Available [facility] [address] [place], [address], 05/19/2023 06:17:55 05/18/2005/18/2023 CBC WITH DIFFE RENTI AL/PL ATELE T RDW 13.1 % 11.5-1 4.5 Not Available [facility] [address] [place], [address], 05/19/2023 06:17:55 05/18/2005/18/2023 CBC WITH DIFFE RENTI AL/PL ATELE T platelets 429 x10e3 /uL 150-45 0 Not Available [facility] [address] [place], [address], 05/19/2023 06:17:55 05/18/2005/18/2023 CBC WITH DIFFE RENTI AL/PL ATELE T neutrophils 65 % notest b. Not Available [facility] [address] [place], [address], 05/19/2023 06:17:55 05/18/2005/18/2023 CBC WITH DIFFE RENTI AL/PL ATELE T lymphs 24 % notest b. Not Available [facility] [address] [place], [address], 05/19/2023 06:17:55 05/18/2005/18/2023 CBC WITH DIFFE RENTI AL/PL ATELE T monocytes 7 % notest b. Not Available [facility] [address] [place], [address], 05/19/2023 06:17:55 05/18/2005/18/2023 CBC WITH DIFFE RENTI AL/PL ATELE T eos 3 % notest b. Not Available [facility] [address] [place], [address], 05/19/2023 06:17:55 05/18/2005/18/2023 CBC WITH DIFFE RENTI AL/PL ATELE T basos 1 % notest b. Not Available [facility] [address] [place], [address], 05/19/2023 06:17:55 05/18/2005/18/2023 CBC WITH DIFFE RENTI AL/PL ATELE T neutrophils (absolute) 5.4 x10e3 /uL 1.4-7. 0 Not Available [facility] [address] [place], [address], 05/19/2023 06:17:55 05/18/2005/18/2023 CBC WITH DIFFE RENTI AL/PL ATELE T lymphs (absolute) 2.0 x10e3 /uL 0.7-3. 1 Not Available [facility] [address] [place], [address], 05/19/2023 06:17:55 05/18/2005/18/2023 CBC WITH DIFFE RENTI AL/PL ATELE T monocytes(ab solute) 0.6 x10e3 /uL 0.1-0. 9 Not Available [facility] [address] [place], [address], 05/19/2023 06:17:55 05/18/2005/18/2023 CBC WITH DIFFE RENTI AL/PL ATELE T eos (absolute) 0.3 x10e3 /uL 0.0-0. 4 Not Available [facility] [address] [place], [address], 05/19/2023 06:17:55 05/18/2005/18/2023 CBC WITH DIFFE RENTI AL/PL ATELE T baso (absolute) 0.1 x10e3 /uL 0.0-0. 2 Not Available [facility] [address] [place], [address], 05/19/2023 06:17:55 05/18/2005/18/2023 CBC WITH DIFFE RENTI AL/PL ATELE T immature granulocytes 0.2 % notest b. Not Available [facility] [address] [place], [address], 05/19/2023 06:17:55 05/18/2005/18/2023 CBC WITH DIFFE RENTI AL/PL ATELE T immature grans (abs) 0.0 x10e3 /uL 0.0-0. 1 Not Available [facility] [address] [place], [address], 05/19/2023 06:17:55 05/18/2005/18/2023 CBC WITH DIFFE RENTI AL/PL ATELE T NRBC 0 % 0-0 Not Available [facility] [address] [place], [address], 05/19/2023 06:17:55 05/18/2005/19/2023 TSH RFX ON ABNOR MAL TO FREE T4 TSH 5.490 uIU/m L 0.450- 4.500 above high normal Not Available [facility] ([facility]) [address] [place], [address], 05/19/2023 13:10:35 05/18/2005/19/2023 HEMOG LOBIN A1C hemoglobin A1C 5.6 % 4.8-5. 6 Predi abete s: 5.7 - 6.4 Diabe bandar: >6.4 Glyce vladimir contr ol for adult s with diabe bandar: <7.0 Not Available [facility] ([facility]) [address] [facility], [place], [address], 05/19/2023 13:10:36 05/18/2005/19/2023 VITAM IN D, 25-HY DROXY vitamin D, 25-hydroxy 36.3 NG/mL 30.0-1 00.0 Vitam in D defic iency has been defin ed by the Insti tute of Medic ine and an Endoc rine Socie ty pract ice guide line as a level of serum 25-OH vitam in D less than 20 ng/mL (1,2) . The Endoc rine Socie ty went on [facility] defin e vitam in D insuf ficie ncy as a level betwe en 21 and 29 ng/mL (2). 1. IOM (Inst itute of Medic ine). 2009. Dieta ry refer ence arvind es for calci um and D. Johan abel DC: The [facility] Press . 2. Aristeo sawant MF, Binkl ey [place], Bisch off-F errar i JONES, et al. Evalu ation , treat ment, and preve ntion of vitam in D defic iency : an Endoc rine Socie ty clini dinah pract ice guide line. JCEM. 2010; 96(7) :1911 -30. Not Available [facility] ([facility]) [address] [facility], [place], [address], 05/19/2023 13:10:37 05/18/20 23 05/19/2023 T4F T4,free (direct) 1.09 NG/dL 0.82-1 .77 Not Available [facility] ([facility]) [address] [facility], [place], [address], 05/19/2023 13:10:37 03/10/20 18 02/12/2018 XR, chest No observ ation record ed. [email or web address] Not Available 2017 14:32:16 05/03/20 23 03/21/2020 XR, forea rm No observ ation record ed. [place] [id number] [facility] [address], [place], [address], 05/03/2023 14:43:40 Result Notes None recorded. Problems Name Problem SNOMED Code Status Onset Date Resolution Date Notes Provider Name and Address Organization Details Recorded Time Subacromial bursitis 81192576 Active Atul henriquez [place] - SIF 5 16:23:04 Carpal tunnel syndrome 18121934 Active ARIANA Castillo Attn: Ludmila g,[address] 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, [place], [place], [address] [place] [address] 2, [place] [facility] 3 17:37:55 Subclinical hypothyroidi sm 39500587 Active 2022 ADDIS SHAIKH Attn: Ludmila aquino,[address] [facility], [place], [place], [address] [place] [address] 2, [place] - [facility] 3 22:40:03 Mean corpuscular volume above reference range 458519785 Active 2022 ADDIS SHAIKH Attn: Ludmila aquino,[address] [facility], [place], [place], [address] [place] [address] 2, [place] - [facility] 3 22:40:05 Serum creatinine above reference range 071763255 Active 2022 ADDIS SHAIKH Attn: Ludmila aquino,[address] [facility], [place], [place], [address] [place] [address] 2, [place] - [facility] 3 22:40:06 Hyperkalemia 64701129 Active 2022 ADDIS SHAIKH Attn: Ludmila aquino,[address] [facility], [place], [place], [address] [place] [address] 2, [place] [facility] 3 22:40:07 Hyperlipidem ia 02277799 Active 2022 ADDIS SHAIKH Attn: Ludmila aquino,[address] [facility], [place], [place], [address] [place] [address] 2, [place] - [facility] 3 22:40:08 Shoulder joint pain 853778272 Active ARIANA Castillo Attn: Ludmila aquino,[address] [facility], [place], [address], [place] - [facility] 6 17:51:07 Pain of elbow region 68750364 Active Viola Nobles [place] null, [place] - [facility] 5 09:55:05 Neck pain 85648625 Active Viola Nobles [place] null, [place] - [facility] 5 09:55:05 Allergic rhinitis 63332927 Active ARIANA Castillo Attn: Ludmila aquino,[address] [facility], [place], [address], [place] - [facility] 6 13:50:40 Mammography abnormal 408675053 Active 2016 Reva Gómez RN null, [place] - [facility] 7 14:48:54 Problem Notes None recorded. Procedures Surgical History Date Name Laterality Status Provider Name and Address Organization Details Recorded Time 3 Date of Last Pap Smear completed Kat Kim MA [place] - [facility] 04/29/2023 08:38:09 7 Joint Injection completed Carlos Garcia PA-C Attn: Accounting,[address] [place], [address], [place] [facility] 09/27/2016 13:28:00 7 Date of Last Mammogram completed Kat Kim MA [place] - [facility] 04/29/2023 08:38:23 5 Joint Injection completed [facility] - [facility] 05/06/2015 15:44:02 5 Joint Injection completed [facility] - [facility] 09/17/2014 16:23:04 Imaging Results None recorded. Procedure Notes None recorded. Medical Equipment None Reported. Allergies No known drug allergies Medications Name Sig Start Date Stop Date Status Note LastModified by Organization Details LastModified Time hydrocodone 5 mg-acetamin ophen 325 mg tablet active Not Available Not Available No t Available meloxicam 15 mg tablet Take 1 tablet every day by oral route with meals. 04/29 completed Not Available Not Available Not Available clopidogrel 75 mg tablet TAKE 1 TABLET BY MOUTH ONCE DAILY active Not Available Not Available No t Available Kenalog 40 mg/mL suspension for injection Take 40 mg by injection route. 04/29 completed Not Available Not Available Not Available amitriptyli ne 25 mg tablet active Not Available Not Available Not Available simvastatin 20 mg tablet TAKE 1 TABLET BY MOUTH NIGHTLY active Not Available Not Available No t Available nitroglycer in 0.[address] 1 tablet by sublingua l route. active Not Available Not Available No t Available omeprazole 20 mg capsule,del ayed release Take 1 capsule every day by oral route. 04/29 completed Not Available Not Available Not Available metoprolol succinate ER 25 mg tablet,exte nded release 24 hr TAKE 1 TABLET BY MOUTH ONCE DAILY active Not Available Not Available No t Available albuterol sulfate HFA 90 mcg/actuati on aerosol inhaler Inhale 2 puff(s) every 4 hours by inhalatio n route as needed for 30 days. active Not Available Not Available No t Available naproxen 500 mg tablet TAKE 1 TABLET BY MOUTH TWICE DAILY NEEDED active Not Available Not Available No t Available amoxicillin 875 mg-potassiu m clavulanate 125 mg tablet Take 1 tablet every 12 hours by oral route for 10 days. 04/29 completed Not Available Not Available Not Available cyclobenzap rine 5 mg tablet Take 1 tablet 3 times a day by oral route for 30 days. active Not Available Not Available No t Available metoprolol tartrate 25 mg tablet 04/29 completed Not Available Not Available Not Available Boostrix Tdap 2.5 Lf unit-8 mcg-5 Lf/0.5 mL intramuscul ar suspension 04/29 completed Not Available Not Available Not Available Prevnar 13 (PF) 0.5 mL intramuscul ar syringe 04/29 completed Not Available Not Available Not Available Flonase Allergy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
--- OUTSIDE RECORDS SUMMARY | 2025-02-06 13:28 | XMS_ITS | Clinical Summary ---
Author Organization [facility] [address] Address [address] [place] [address] Care Team Providers Care Electric Meter Tester Name Role Phone Emily Calderon Primary Care Provider [phone] Allergies No known active allergies Medications aspirin (ASPIR-LOW) 81 mg tablet take 1 Tablet by oral route every day 0 0 02/04/20 16 Active nitroglycerin (NITROSTAT) 0.4 mg SL tabletIndicati ons:Coronary artery disease involving [place] coronary artery of [place] heart without angina pectoris Place 1 tablet [...] Diagnosed Date Coronary artery disease invo lving [place] coronary artery of [place] heart without angina pectoris 08/04/2017 History of coronary artery stent placement 08/04 Immunizations Immunization Administration Dates Next Due Pfizer SARS-CoV-2 Monovalent Vaccination (12+ Yrs) PURPLE 05/22/2021 Medical History Medical History Date Comments Coronary artery disease Family History Medical History Relation Name Comments Stroke Father 2 Stroke; Cause o f : Stroke Other Mother 2 Alive and well; Relation Name Status Comments Father 1 (Age 68) Father 2 Mother 1 Alive Mother 2 Social History Tobacco Use Types Packs/Day Years [...] on file 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 Gender Identity Not on file Sexual Orientation Not on file Obstetrics History Last Filed Vital Signs Vital Sign Reading Time Taken Comments Blood Pressure 130/72 08/09/2024 10:59 AM OPERATIONS ADMINISTRATOR Pulse 76 08/09/2024 10:59 AM OPERATIONS ADMINISTRATOR Temperature - - Respiratory Rate - - Oxygen Saturation 95% 08/09/2024 10:59 AM OPERATIONS ADMINISTRATOR Inhaled Oxygen Concentration - - Weight 85.7 kg (189 lb) 08/09/2024 10:59 AM OPERATIONS ADMINISTRATOR Height 180.3 cm (5' 11) 08/09/2024 10:59 AM OPERATIONS ADMINISTRATOR Body Mass Index 26.36 08/09/2024 10:59 AM OPERATIONS ADMINISTRATOR Plan of Treatment Health Maintenance Due Date Last Done Comments Breast Cancer Screening-Mammogram 1965 Cervical Cancer Screening 1965 Colon Cancer Screening-Colonoscopy 1965 Depression Screening 1965 Hepatitis C Screening 1964 Hepatitis B Screening 01/08/1982 Regular Well Visit/Exam 18-64 01/08/1982 Zoster Vaccine (1 of 2) 01/08/2014 Pneumococcal vaccine <65 (2 of 2 - PPSV23) 06/24/2017 04/29/2017 Covid-19 Vaccine (4 - 2023-2 5 season) 2024 05/22/2021, 10/19/2020, 09/28/2020 Influenza Vaccine (#1) 2025 3, 05/21/2022, 05/26/2017, Additional history exists DTaP/Tdap/Td Vaccine (3 - Td or Tdap) 03/21/2030 03/21/2020, 05/03/2017 Insurance [facility] Care Teams Electric Meter Tester Relationship Specialty Start Date End Date Emily Calderon PA [address] [place] [id number] PCP - General Physician Legal Officer 05/31/23
[2025-02-06 13:42] LABS: Hematocrit 44.4 % (37.0-47.0); Hemoglobin 15.0 g/dL (12.0-15.0); Immature Granulocyte Percent A 0.2 % (0-0.5); Lymphocytes Absolute Auto 2.43 K/mm3 (0.9-3.2); Mean Corpuscular HGB Conc 33.8 g/dl (32-36); Mean Corpuscular Hemoglobin 30.1 pg (26-34); Mean Corpuscular Volume 89.2 fl (80-100); Nucleated Red Blood Cells Absolute Auto 0.000 K/mm3 (0.0-0.012); Nucleated Red Blood Cells Perc 0.0 % (0.0-0.2); Platelet Count Result 506 k/mm3 (150-375); Red Blood Count 4.98 M/mm3 (4.2-5.4); White Blood Count 10.1 K/mm3 (4.5-10.0)
[2025-02-06 13:56] LABS: Alanine Aminotransferase 20 U/L (6-35); Albumin Level 4.8 g/dL (3.5-5.1); Alkaline Phosphatase 114 U/L (38-126); Anion Gap 11 mmol/L (4-12); Aspartate Amino Transferase 32 U/L (14-36); Bilirubin,Total 0.3 mg/dL (0.2-1.3); Blood Urea Nitrogen 7 mg/dL (7-17); Calcium 10.0 mg/dL (8.4-10.2); Carbon Dioxide 22 mmol/L (22-30); Chloride 103 mmol/L (98-107); Estimated CRCL calculation 71 ml/min; Estimated Glomerular Filt Rate > 60; Glucose 125 mg/dL (65-110); Lipase 59 U/L (23-300); Potassium 4.1 mmol/L (3.4-5.0); Sodium 136 mmol/L (137-145); Total Protein 8.4 g/dL (6.3-8.2)
[2025-02-06 13:58] LABS: INR 1.0; Prothrombin Time 12.8 Seconds (11.1-14.7)
[2025-02-06 13:59] LABS: Partial Thromboplastin Time 29.4 Seconds (22.3-36.8)
[2025-02-06 14:08] LABS: Troponin I < 0.012 ng/mL (0.000-0.034)
[2025-02-06 14:51] LABS: NT Pro B Type Natriuretic Pept 163 pg/mL (19.9-100)
--- NOTE | 2025-02-06 15:01 | PC.NURSE ---
While ambulating, the lowest oxygen saturation dropped was to 93% on RA. Pt. states while walking, her mid-sternal CP increased.
--- OUTSIDE RECORDS SUMMARY | 2025-02-06 15:05 | XMS_ITS | Clinical Summary ---
Author Organization [facility] Address [address] [place], [place] [id number] Care Team Providers Care Crude Tester Name Role Phone Unavailable Primary Care Provider [...]
--- OUTSIDE RECORDS SUMMARY | 2025-02-06 15:05 | XMS_ITS | Referral Summary ---
Author Organization [facility] [address] Address [address] [place] [address] Care Team Providers Care Detention Deputy Name Role Phone Emily Calderon Primary Care Provider [phone] Allergies No known active allergies Medications aspirin (ASPIR-LOW) 81 mg tablet take 1 Tablet by oral route every day 0 0 02/04/20 16 Active nitroglycerin (NITROSTAT) 0.4 mg SL tabletIndicati ons:Coronary artery disease involving [place] coronary artery of [place] heart without angina pectoris Place 1 tablet [...] Diagnosed Date Coronary artery disease invo lving [place] coronary artery of [place] heart without angina pectoris 08/04/2017 History of [...] on file 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 Gender Identity Not on file Sexual Orientation Not on file Last Filed Vital Signs Vital Sign Reading Time Taken Comments Blood Pressure 130/72 08/09/2024 10:59 AM CHARHOUSE WORKER Pulse 76 08/09/2024 10:59 AM CHARHOUSE WORKER Temperature - - Respiratory Rate - - Oxygen Saturation 95% 08/09/2024 10:59 AM CHARHOUSE WORKER Inhaled Oxygen Concentration - - Weight 85.7 kg (189 lb) 08/09/2024 10:59 AM CHARHOUSE WORKER Height 180.3 cm (5' 11) 08/09/2024 10:59 AM CHARHOUSE WORKER Body Mass Index 26.36 08/09/2024 10:59 AM CHARHOUSE WORKER Plan of Treatment Not on file Insurance [facility] Care Teams Detention Deputy Relationship Specialty Start Date End Date Emily Calderon PA [facility] [place] [address] PCP - General Physician Learning And Development Specialist 05/31/23
--- OUTSIDE RECORDS SUMMARY | 2025-02-06 15:05 | XMS_ITS | Clinical Summary ---
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
--- OUTSIDE RECORDS SUMMARY | 2025-02-06 15:05 | XMS_ITS | Clinical Summary ---
Author Organization [facility] [address] Address [address] [place] [address] Care Team Providers Care Blaster Helper Name Role Phone Emily Calderon Primary Care Provider [phone] Allergies No known active allergies Medications aspirin (ASPIR-LOW) 81 mg tablet take 1 Tablet by oral route every day 0 0 02/04/20 16 Active nitroglycerin (NITROSTAT) 0.4 mg SL tabletIndicati ons:Coronary artery disease involving yocha dehe coronary artery of yocha dehe heart without angina pectoris Place 1 tablet [...] Diagnosed Date Coronary artery disease invo lving yocha dehe coronary artery of yocha dehe heart without angina pectoris 08/04/2017 History of [...] on file Legal Sex Female 4:19 AM PLASTIC [employer] F[employer]IC[employer] Gender Identity Not on file Sexual Orientation Not on file Obstetrics History Last Filed Vital Signs Vital Sign Reading Time Taken Comments Blood Pressure 130/72 08/09/2024 10:59 AM PLASTIC PARTS FABRICATOR Pulse 76 08/09/2024 10:59 AM PLASTIC [employer]S FABRICATOR Temperature - - Respiratory Rate - - Oxygen Saturation 95% 08/09/2024 10:59 AM PLASTIC PARTS FABRICATOR Inhaled Oxygen Concentration - - Weight 85.7 kg (189 lb) 08/09/2024 10:59 AM PLASTIC PARTS FABRICATOR Height 180.3 cm (5' 11) 08/09/2024 10:59 AM PLASTIC PARTS FABRICATOR Body Mass Index 26.36 08/09/2024 10:59 AM PLASTIC PARTS FABRICATOR Plan of Treatment Health Maintenance Due Date [...] Td or Tdap) 03/21/2030 03/21/2020, 05/03/2017 Insurance [facility] Care Teams Blaster Helper Relationship Specialty Start Date End Date Emily Calderon PA [address] [place] [id number] PCP - General Physician Electro Mechanical Assembler 05/31/23
--- NOTE | 2025-02-06 15:08 | ED.GENADULT ---
HPI - General Adult General Chief complaint: Shortness of Breath/Dyspnea Stated complaint: sob Time Seen by Provider: 02/06/25 14:21 History of Present Illness HPI narrative: 60-year-old female present to the emergency department for evaluation for exertional shortness of breath and intermittent chest pain. Patient does have history of hypertension high cholesterol. Patient denies any prior history of congestive heart failure. Patient reports over the 2 days she has had worsening exertional shortness of breath and fatigue. Patient was also having right shoulder pain she states it is very positional. Patient is a smoker. Patient previously smoked tobacco in now does vape. Does report approximately 50 lb of weight lost a decreased appetite. Related Data Home Medications ?Medication ?Instructions ?Recorded ?Confirmed ?Last Taken ?Type clopidogrel 75 mg tablet 75 mg DAILY 03/03/20 04/09/21 Unknown History metoprolol succinate 25 mg 25 mg PO DAILY 03/03/20 04/09/21 Unknown History tablet,extended release 24 hr simvastatin 20 mg tablet 20 mg DAILY 03/03/20 04/09/21 Unknown History nitroglycerin 0.4 mg sublingual mg 08/15/24 Unknown History tablet rosuvastatin 10 mg tablet mg 08/15/24 Unknown History Allergies Allergy/AdvReac Type Severity Reaction Status Date / Time No Known Allergies Allergy Verified 02/06/25 13:29 Review of Systems Review of Systems: All systems reviewed & are unremarkable except as noted in HPI and below PMFSH Past Medical History Medical History (Updated 02/06/25 @ 19:16 by Larry Castanon MD) Kidney stones GERD (gastroesophageal reflux disease) Hypertension Hypercholesterolemia Family History Family History (Updated 02/06/25 @ 21:07 by Mati Zee RN) Father Cardiac anomaly Social History Social History Smoking packs per day: 1 Smoking cigarettes per day: 20.0 Years smoked: 40 Smoking pack-years: 40.00 Smoking status: Current every day smoker Tobacco type: cigarettes Alcohol intake: current Drinks per week: 2 Substance use: never Do You Feel Safe in your Home?: Yes Lack of Transportation: No Lack of Food: Never True Current Housing: I Have Housing Concerned About Future Housing: No Difficulty Paying Gas/Electric Bills: No Difficulty Paying for Meds: No Currently Unemployed: No Education: High School Diploma/GED Difficulty w/ Childcare or Family Care: No Gender identity (if verbalized by the patient): Female Spiritual care concerns: No Exam Narrative: APPEARANCE: Uncomfortable appearing HEAD: normocephalic, atraumatic. EYES: PERRLA/EOMI, conjunctivae clear. NOSE: Normal no drainage EARS:TMS clear with good light reflex. THROAT: Pharynx clear, no exudate. NECK: Supple. No adenopathy, no masses. RESPIRATORY: Airway patent, respirations nonlabored. Clear to auscultation bilaterally, no rales, rhonchi, wheezing. CARDIOVASCULAR: Regular rate and rhythm without murmurs rubs or gallops. ABDOMINAL: Soft, nontender, nondistended, normal bowel sounds MUSCULOSKELETAL: Moves all extremities. Strength/ROM intact, No edema, No calf tenderness. NEURO: Alert. Cranial nerves II through XII intact. Good gait. Good coordination SKIN: Warm, dry. Normal Color Course Vital Signs Vital signs: Vital Signs Temperature 97.6 F 02/06/25 13:27 Pulse Rate 88 02/06/25 13:27 Respiratory Rate 16 02/06/25 13:27 Blood Pressure 154/83 H 02/06/25 13:27 Pulse Oximetry 96 02/06/25 13:27 Oxygen Delivery Room Air 02/06/25 13:27 Temperature 98.4 F 02/06/25 20:53 Pulse Rate 73 02/06/25 20:53 Respiratory Rate 17 02/06/25 20:53 Blood Pressure 163/79 H 02/06/25 20:53 Pulse Oximetry 93 02/06/25 20:53 Oxygen Delivery Room Air 02/06/25 19:47 Fraction of Inspired Oxygen 21 02/06/25 19:47 Medical Decision Making [facility] Narrative Medical decision making narrative: 60-year-old female present to the emergency department for evaluation of worsening right-sided chest pain and exertional shortness of breath. Patient is currently afebrile but does have a leukocytosis of 10.1 hemoglobin of 15.0. Patient does have a mildly elevated proBNP of 163 a glucose of 125. Chest x-ray did show pulmonary vascular congestion. CTA was ordered to evaluate for pulmonary embolism and was negative for PE. CT scan does show evidence of a hilar mass with some compression of the bronchus and pulmonary arteries. I discussed the case with Dr [facility], and patient was accepted for transfer. I discussed the case with our hospitalist and patient will be admitted to the IMU to continue cardiac rule out. CT scan did make reference to atelectasis versus pneumonia versus fibrotic changes versus thrombus of the pulmonary veins. I did not start the patient on anticoagulation for this at this time since patient may be having a pending biopsy. Differential Diagnosis Differential Diagnosis: Pulmonary embolism, pneumonia, pneumothorax, ACS Vital Signs Vital Signs: Vital Signs Temperature 97.6 F 02/06/25 13:27 Pulse Rate 88 02/06/25 13:27 Respiratory Rate 16 02/06/25 13:27 Blood Pressure 154/83 H 02/06/25 13:27 Pulse Oximetry 96 02/06/25 13:27 Oxygen Delivery Room Air 02/06/25 13:27 Temperature 98.4 F 02/06/25 20:53 Pulse Rate 73 02/06/25 20:53 Respiratory Rate 17 02/06/25 20:53 Blood Pressure 163/79 H 02/06/25 20:53 Pulse Oximetry 93 02/06/25 20:53 Oxygen Delivery Room Air 02/06/25 19:47 Fraction of Inspired Oxygen 21 02/06/25 19:47 Lab Data Lab results reviewed: Yes I reviewed the patient's lab results. 02/06/25 13:35 02/06/25 13:35 Labs: Lab Results 02/06/25 02/06/25 Range/Units 13:35 16:16 WBC 10.1 H (4.5-10.0) K/mm3 RBC 4.98 (4.2-5.4) M/mm3 Hgb 15.0 (12.0-15.0) g/dL Hct 44.4 (37.0-47.0) % MCV 89.2 (80-100) fl MCH 30.1 (26-34) pg MCHC 33.8 (32-36) g/dl RDW 13.2 (11.5-14.5) % Plt Count 506 H (150-375) k/mm3 MPV 8.6 (7.4-10.4) fl Immature Gran % (Auto) 0.2 (0-0.5) % Neut % (Auto) 66.5 (45.5-73.1) % Lymph % (Auto) 24.0 (18.3-44.2) % [place] % (Auto) 7.2 (2.6-8.5) % Eos % (Auto) 1.3 (0-4.4) % Baso % (Auto) 0.8 (0.2-1.2) % Lymph # (Auto) 2.43 (0.9-3.2) K/mm3 [place] # (Auto) 0.7 H (0.1-0.6) K/mm3 Eos # (Auto) 0.1 (0-0.3) K/mm3 Baso # (Auto) 0.1 (0.0-0.1) K/mm3 Abs Immat Gran (auto) 0.02 (0.00-0.031) K/mm3 Absolute Neuts (auto) 6.7 (1.3-6.7) K/mm3 Absolute Nucleated RBC 0.000 (0.0-0.012) K/mm3 Nucleated RBC % 0.0 (0.0-0.2) % PT 12.8 (11.1-14.7) Seconds INR 1.0 APTT 29.4 (22.3-36.8) Seconds Sodium 136 L (137-145) mmol/L Potassium 4.1 (3.4-5.0) mmol/L Chloride 103 (98-107) mmol/L Carbon Dioxide 22 (22-30) mmol/L Anion Gap 11 (4-12) mmol/L BUN 7 (7-17) mg/dL Creatinine 0.81 (0.7-1.0) mg/dL Estim Creat Clear Calc 71 ml/min Estimated GFR > 60 (59 - ) Glucose 125 H (65-110) mg/dL Calcium 10.0 (8.4-10.2) mg/dL Total Bilirubin 0.3 (0.2-1.3) mg/dL AST 32 (14-36) U/L ALT 20 (6-35) U/L Alkaline Phosphatase 114 (38-126) U/L Troponin I < 0.012 < 0.012 (0.000-0.034) ng/mL NT-Pro-B Natriuret Pep 163 H (19.9-100) pg/mL Total Protein 8.4 H (6.3-8.2) g/dL Albumin 4.8 (3.5-5.1) g/dL Lipase 59 (23-300) U/L Imaging Data Radiologist's impression: Impressions Chest X-Ray 02/06/25 14:19 IMPRESSION: Mild vascular congestion and bilateral alveolar opacities. Infection cannot be excluded. Short-term follow-up chest radiograph is recommended after appropriate clinical therapy to document resolution. Chest CTA 02/06/25 17:54 IMPRESSION: 1. No pulmonary embolism. 2. Mass seen in the right paratracheal and subcarinal areas with extension to the right hilum. Further evaluation advised. The mass is occluding the right main bronchus and causing some compression of the right pulmonary artery. 3. Atelectasis versus pneumonia versus fibrotic changes in the right lower lobe with minimal opacification of the bases suggestive of thrombosis. 4. Focal areas of tree-in-bud appearance in the right upper lobe suggestive of infection. Follow-up advised. 5. Sliding hiatus hernia. Discharge Plan Discharge Clinical Impression: Hilar mass, Chest pain Patient Disposition: Still a Patient Condition: Serious
--- NOTE | 2025-02-06 15:53 | ECG_ITS ---
Test Date: 2025-02-06 16:00:02 Measurements Intervals [place] Rate: 67 P: 58 NV: 162 QRS: 70 QRSD: 78 T: 78 QT: 424 QTc: 450 Interpretive Statements SINUS RHYTHM Compared to ECG 02/06/2025 13:31:21 ST (T wave) deviation no longer present Electronically Signed On 02-07-2025 11:39:57 CDT by Matthew Rocha M.D.
[2025-02-06] MEDS: ASPIRIN 81 MG CHEWABLE TABLET 324 MG PO (16:07)
[2025-02-06 16:52] LABS: Troponin I < 0.012 ng/mL (0.000-0.034)
--- NOTE | 2025-02-06 17:51 | P.HP_ITS ---
H&P: HPI History of Present Illness Date/Time: 02/06/25 17:51 Chief Complaint: Shortness of breath and chest pain Narrative: 60-year-old female with past medical history of hypertension hyperlipidemia and GERD presents the hospital with chest pain and shortness of breath for 2 days. Patient states that the chest pain is intermittent. And shortness of breath increases with movements. Patient also complains of severe arm pain. She has full range of motion. She states that it feels better when lying on it. Patient denies nausea or vomiting. Leukocytosis at 10.1, platelets of 506, sodium 136, glucose of 125, troponins are negative, proBNP of 163, total protein of 8.4, chest x-ray shows mild vascular congestion. EKG shows sinus rhythm. Chest CT shows Mass seen in the right paratracheal and subcarinal areas with extension to the right hilum. Further evaluation advised. The mass is occluding the right main bronchus and causing some compression of the right pulmonary artery. Atelectasis versus pneumonia versus fibrotic changes in the right lower lobe with minimal opacification of the bases suggestive of thrombosis. Focal areas of tree-in-bud appearance in the right upper lobe suggestive of infection. Patient will be transferred to [place] for higher level of care however there is no bed available at this time. Review of Systems Review of Systems: 12 systems were reviewed and are negativ e except for as per HPI. [facility] Past Medical History Medical History (Updated 02/06/25 @ 23:57 by Carlota Muñoz APRN) Kidney stones GERD (gastroesophageal reflux disease) Hypertension Hypercholesterolemia Family History Family History (Updated 02/06/25 @ 21:07 by Mati Zee RN) Father Cardiac anomaly Social History Social History Smoking packs per day: 1 Smoking cigarettes per day: 20.0 Years smoked: 40 Smoking pack-years: 40.00 Smoking status: Current every day smoker Tobacco type: cigarettes Alcohol intake: current Drinks per week: 2 Substance use: never Do You Feel Safe in your Home?: Yes Lack of Transportation: No Lack of Food: Never True Current Housing: I Have Housing Concerned About Future Housing: No Difficulty Paying Gas/Electric Bills: No Difficulty Paying for Meds: No Currently Unemployed: No Education: High School Diploma/GED Difficulty w/ Childcare or Family Care: No Gender identity (if verbalized by the patient): Female Spiritual care concerns: No Meds Home Medications and Allergies Home Medications ?Medication ?Instructions ?Recorded ?Confirmed ?Type clopidogrel 75 mg tablet 75 mg DAILY 03/03/20 04/09/21 History metoprolol succinate 25 mg 25 mg PO DAILY 03/03/20 04/09/21 History tablet,extended release 24 hr simvastatin 20 mg tablet 20 mg DAILY 03/03/20 04/09/21 History albuterol sulfate 90 mcg/actuation 2 puff inhalation QID PRN 08/15/24 Rx aerosol inhaler shortness of breath or wheezing #8.5 grams azithromycin 250 mg tablet See Rx Instructions PO .COMPLEX #6 08/15/24 Rx (Zithromax Z-Srinivasan) tabs nitroglycerin 0.4 mg sublingual mg 08/15/24 History tablet prednisone 20 mg tablet 40 mg (2 x 20 mg) PO DAILY 5 days 08/15/24 Rx #10 tabs rosuvastatin 10 mg tablet mg 08/15/24 History Allergies Allergy/AdvReac Type Severity Reaction Status Date / Time No Known Allergies Allergy Verified 02/06/25 13:29 Vital Signs Vital Signs - 24 hr 02/06/25 13:27 02/06/25 14:23 02/06/25 14:26 Temperature 97.6 F Pulse Rate 88 82 Respiratory Rate 16 16 Blood Pressure 154/83 H 139/94 H Pulse Oximetry 96 95 Oxygen Delivery Room Air Room Air Room Air 02/06/25 16:15 02/06/25 17:30 Temperature Pulse Rate 67 75 Respiratory Rate 18 18 Blood Pressure 160/91 H 160/90 H Pulse Oximetry 95 96 Oxygen Delivery Exam Narrative: General: well appearing, appears stated age. HEENT: normocephalic, atraumatic. Mucous membranes moist. EOMI, PERRLA, bilateral sclera anicteric, no conjunctival injection. Neck supple without JVD, lymphadenopathy, or bruit. Respiratory: clear to ascultation bilaterally. No rales/rhonic/wheezes. Cardiovascular: Regular rate and rhythm, normal S1-S2 upon ascultation. No murmurs, rubs, or clicks. PMI is nondisplaced, capillary refill less than 3 second. Abdomen: Soft, round, no pulsatile masses, nondistended and nontender. No rebound, no guarding. No CVA tenderness, no hepatosplenomegaly. Bowel sounds present to all four quadrants. No high pitch or tinkling sounds, resonant to percussion. Extremities: No cyanosis, clubbing, or edema present. Pulses are palpable 2/2. Active ROM to all four extremities. Neuro: Alert and orientated x 4. PERRLA. Cranial nerves 2-12 intact without focal deficit. Skin: Warm, dry, and intact, without rash, erythema, or lesion. Psych: pleasant, cooperative, normal speech, normal affect, no hallucinations, no dysarthia H&P: Results Labs Labs: Short CBC 02/06/25 Range/Units 13:35 WBC 10.1 H (4.5-10.0) K/mm3 Hgb 15.0 (12.0-15.0) g/dL Hct 44.4 (37.0-47.0) % Plt Count 506 H (150-375) k/mm3 BMP 02/06/25 13:35 Sodium 136 L Potassium 4.1 Chloride 103 Carbon Dioxide 22 BUN 7 Creatinine 0.81 Glucose 125 H Calcium 10.0 Cardiac Enzymes 02/06/25 02/06/25 Range/Units 13:35 16:16 Troponin I < 0.012 < 0.012 (0.000-0.034) ng/mL Liver Function 02/06/25 Range/Units 13:35 Total Bilirubin 0.3 (0.2-1.3) mg/dL AST 32 (14-36) U/L ALT 20 (6-35) U/L Alkaline Phosphatase 114 (38-126) U/L Albumin 4.8 (3.5-5.1) g/dL Assessment and Plan Assessment and plan (1) Hilar mass: Code(s): R91.8 - Other nonspecific abnormal finding of lung field Status: Acute Assessment and Plan: Mass seen in the right paratracheal and subcarinal areas with extension to the right hilum. Further evaluation advised. The mass is occluding the right main bronchus and causing some compression of the right pulmonary artery. Transferred to [facility] when bed is available (2) Pneumonia: Code(s): J18.9 - Pneumonia, unspecified organism Status: Acute Assessment and Plan: Atelectasis versus pneumonia versus fibrotic changes in the right lower lobe with minimal opacification of the bases suggestive of thrombosis. Focal areas of tree-in-bud appearance in the right upper lobe suggestive of infection. Follow-up advised. jessica rae dazithromycin (3) Thrombus: Code(s): I82.90 - Acute embolism and thrombosis of unspecified vein Status: Acute Assessment and Plan: heparin drip per protocal (4) Chest pain: Code(s): R07.9 - Chest pain, unspecified Status: Acute Assessment and Plan: Likely secondary to above Trend troponin EKG as needed Nitro (5) Hypertension: Code(s): I10 - Essential (primary) hypertension Status: Acute Assessment and Plan: According on medication to be reconciled (6) Hypercholesterolemia: Code(s): E78.00 - Pure hypercholesterolemia, unspecified Status: Acute Assessment and Plan: Waiting on medication rec to be have reconciled Hospitalist MIPS Advance Care Plan I have confirmed that the patient's Advanced Care Plan is present, code status is documented, or surrogate decision maker is listed in patient medical record.: Yes
--- NOTE | 2025-02-06 19:00 | PC.NURSE ---
This RN spoke with oriana at the [facility] transfer center. All triage questions answered. Pt. is on high priority list.
--- NOTE | 2025-02-06 19:22 | ECG_ITS ---
Test Date: 2025-02-06 20:14:40 Measurements Intervals [place] Rate: 64 P: 63 AR: 161 QRS: 64 QRSD: 90 T: 74 QT: 446 QTc: 463 Interpretive Statements SINUS RHYTHM Compared to ECG 02/06/2025 16:00:02 No significant changes Electronically Signed On 02-07-2025 11:46:55 CDT by Matthew Rocha M.D.
[2025-02-06] MEDS: ALBUTEROL SULFATE NEB 2.5 MG/3 ML INH INHALATION (19:44)
[2025-02-06 20:03] LABS: Troponin I < 0.012 ng/mL (0.000-0.034)
[2025-02-06] MEDS: HYDROmorphone HCL INJ (*CRX) 2 MG/ML VIAL 0.5 MG IV PUSH (20:07)
--- NOTE | 2025-02-06 21:31 | ADMGEN ---
This patient, Ana Luisa Mayfield, was admitted to IMU Room 212-01. Patient/family oriented to hospital policies and general routines including ID bracelet, bed and alarms, visiting hours, pain management, procedures, bathroom and other care routines, personal items, smoking policy, room service/diet, and visiting hours. Information on how to activate the Rapid Response Team has been discussed. Patient/Family are encouraged to report perceived risks to care and to ask questions if they do not understand what they are told or what they should do.
--- NOTE | 2025-02-06 21:35 | PC.NURSE ---
sbar tubed and verbal report given to Tolu CONSTANTINO
[2025-02-06 22:01] LABS: Anion Gap 9 mmol/L (4-12); Blood Urea Nitrogen 7 mg/dL (7-17); Calcium 9.9 mg/dL (8.4-10.2); Carbon Dioxide 23 mmol/L (22-30); Chloride 100 mmol/L (98-107); Estimated CRCL calculation 71 ml/min; Estimated Glomerular Filt Rate > 60; Glucose 108 mg/dL (65-110); Potassium 4.2 mmol/L (3.4-5.0); Sodium 132 mmol/L (137-145)
[2025-02-06] MEDS: HYDROcodone/acetaminophen (*CRX) 5-325 MG TABLET 1 TAB PO (22:01)
[2025-02-07] VITALS (16 sets, daily range): BP systolic 113–154; BP diastolic 56–75; PULSE 52–101; RESP 14–22; TEMP 36.4–36.8; O2SAT 92–97; BMI 21.8
[2025-02-07 00:45] LABS: Hematocrit 40.8 % (37.0-47.0); Hemoglobin 13.6 g/dL (12.0-15.0); Immature Granulocyte Percent A 0.3 % (0-0.5); Lymphocytes Absolute Auto 2.87 K/mm3 (0.9-3.2); Mean Corpuscular HGB Conc 33.3 g/dl (32-36); Mean Corpuscular Hemoglobin 29.7 pg (26-34); Mean Corpuscular Volume 89.1 fl (80-100); Nucleated Red Blood Cells Absolute Auto 0.000 K/mm3 (0.0-0.012); Nucleated Red Blood Cells Perc 0.0 % (0.0-0.2); Platelet Count Result 449 k/mm3 (150-375); Red Blood Count 4.58 M/mm3 (4.2-5.4); White Blood Count 10.6 K/mm3 (4.5-10.0)
[2025-02-07 01:05] LABS: INR 1.0; Prothrombin Time 13.0 Seconds (11.1-14.7)
[2025-02-07 01:06] LABS: Partial Thromboplastin Time 30.0 Seconds (22.3-36.8)
[2025-02-07] MEDS: HEPARIN SOD/D5W 100 UNITS/ML 25,000 UNITS/250 ML BAG 13 UNITS IV CONT (01:41)
[2025-02-07] MEDS: HYDROcodone/acetaminophen (*CRX) 5-325 MG TABLET 1 TAB PO ×4 (01:48→15:39)
[2025-02-07] MEDS: cefTRIAXone 1 GM in SODIUM CHLORIDE 0.9% IV 50 ML 100 ML IVPB (02:07)
[2025-02-07] MEDS: AZITHROMYCIN IV 500 MG in SODIUM CHLORIDE 0.9% IV 250 ML IVPB (03:07)
[2025-02-07] MEDS: DOCUSATE SODIUM 100 MG CAPSULE PO (07:29)
[2025-02-07] MEDS: ASPIRIN 81 MG CHEWABLE TABLET PO (07:29)
[2025-02-07 07:36] LABS: Hematocrit 43.5 % (37.0-47.0); Hemoglobin 14.3 g/dL (12.0-15.0); Immature Granulocyte Percent A 0.1 % (0-0.5); Lymphocytes Absolute Auto 2.00 K/mm3 (0.9-3.2); Mean Corpuscular HGB Conc 32.9 g/dl (32-36); Mean Corpuscular Hemoglobin 30.1 pg (26-34); Mean Corpuscular Volume 91.6 fl (80-100); Nucleated Red Blood Cells Absolute Auto 0.000 K/mm3 (0.0-0.012); Nucleated Red Blood Cells Perc 0.0 % (0.0-0.2); Platelet Count Result 492 k/mm3 (150-375); Red Blood Count 4.75 M/mm3 (4.2-5.4); White Blood Count 8.0 K/mm3 (4.5-10.0)
[2025-02-07] MEDS: ALBUTEROL SULFATE NEB 2.5 MG/3 ML INH INHALATION ×2 (07:50→14:20)
[2025-02-07 08:09] LABS: Anion Gap 9 mmol/L (4-12); Blood Urea Nitrogen 6 mg/dL (7-17); Calcium 9.7 mg/dL (8.4-10.2); Carbon Dioxide 26 mmol/L (22-30); Chloride 101 mmol/L (98-107); Estimated CRCL calculation 74 ml/min; Estimated Glomerular Filt Rate > 60; Glucose 107 mg/dL (65-110); Potassium 4.1 mmol/L (3.4-5.0); Sodium 136 mmol/L (137-145)
[2025-02-07 08:13] LABS: Partial Thromboplastin Time 87.7 Seconds (22.3-36.8)
--- NOTE | 2025-02-07 12:10 | PC.NURSE ---
Spoke with Dr. Crook about looking at other options like other facilities besides just [facility] to transfer the patient. Stated that patient is having increased pain on/off and being treated with prn's. stated he would look at it later today if he had time.
[2025-02-07 14:56] LABS: Partial Thromboplastin Time 112.6 Seconds (22.3-36.8)
--- NOTE | 2025-02-07 15:08 | P.PNIM_ITS ---
Progress Note: A&P Assessment and Plan (1) Hilar mass: Code(s): R91.8 - Other nonspecific abnormal finding of lung field Status: Acute Assessment and Plan: Mass seen in the right paratracheal and subcarinal areas with extension to the right hilum. Further evaluation advised. The mass is occluding the right main bronchus and causing some compression of the right pulmonary artery. Transferred to [facility] when bed is available (2) Pneumonia: Code(s): J18.9 - Pneumonia, unspecified organism Status: Acute Assessment and Plan: Atelectasis versus pneumonia versus fibrotic changes in the right lower lobe with minimal opacification of the bases suggestive of thrombosis. Focal areas of tree-in-bud appearance in the right upper lobe suggestive of infection. Follow-up advised. rovephin an dazithromycin (3) Thrombus: Code(s): I82.90 - Acute embolism and thrombosis of unspecified vein Status: Acute Assessment and Plan: heparin drip per protocal (4) Chest pain: Code(s): R07.9 - Chest pain, unspecified Status: Acute Assessment and Plan: Likely secondary to above Trend troponin EKG as needed Nitro (5) Hypertension: Code(s): I10 - Essential (primary) hypertension Status: Acute Assessment and Plan: According on medication to be reconciled (6) Hypercholesterolemia: Code(s): E78.00 - Pure hypercholesterolemia, unspecified Status: Acute Assessment and Plan: Waiting on medication rec to be have reconciled Plan Awiating transfer to [facility] call to [place] Subjective Date/time seen: 02/07/25 15:08 Interval history: Comfortable at bedside awaiting transfer to [facility] Review of Systems Review of Systems: 12 systems were reviewed and are negativ e except for as per HPI. Exam Narrative: General: well appearing, appears stated age. HEENT: normocephalic, atraumatic. Mucous membranes moist. EOMI, PERRLA, bilateral sclera anicteric, no conjunctival injection. Neck supple without JVD, lymphadenopathy, or bruit. Respiratory: clear to ascultation bilaterally. No rales/rhonic/wheezes. Cardiovascular: Regular rate and rhythm, normal S1-S2 upon ascultation. No murmurs, rubs, or clicks. PMI is nondisplaced, capillary refill less than 3 second. Abdomen: Soft, round, no pulsatile masses, nondistended and nontender. No rebound, no guarding. No CVA tenderness, no hepatosplenomegaly. Bowel sounds present to all four quadrants. No high pitch or tinkling sounds, resonant to percussion. Extremities: No cyanosis, clubbing, or edema present. Pulses are palpable 2/2. Active ROM to all four extremities. Neuro: Alert and orientated x 4. PERRLA. Cranial nerves 2-12 intact without focal deficit. Skin: Warm, dry, and intact, without rash, erythema, or lesion. Psych: pleasant, cooperative, normal speech, normal affect, no hallucinations, no dysarthia Objective Data Vital Signs Vital Signs: Vital Signs - 24 hr 02/06/25 16:15 02/06/25 17:30 02/06/25 19:47 Temperature 98 F Pulse Rate 67 75 74 Respiratory Rate 18 18 19 Blood Pressure 160/91 H 160/90 H Pulse Oximetry 95 96 Oxygen Delivery Fraction of Inspired Oxygen 02/06/25 19:47 02/06/25 20:13 02/06/25 20:20 Temperature 98.5 F Pulse Rate 74 70 Respiratory Rate 19 18 Blood Pressure 135/73 Pulse Oximetry 94 94 Oxygen Delivery Room Air Fraction of Inspired Oxygen 21 02/06/25 20:46 02/06/25 20:53 02/06/25 22:32 Temperature 98.6 F 98.4 F Pulse Rate 68 73 53 L Respiratory Rate 12 17 Blood Pressure 134/68 163/79 H Pulse Oximetry 94 93 Oxygen Delivery Fraction of Inspired Oxygen 02/06/25 23:56 02/07/25 00:00 02/07/25 00:00 Temperature 97.8 F Pulse Rate 58 L 58 L 61 Respiratory Rate 17 Blood Pressure 142/98 H Pulse Oximetry 94 Oxygen Delivery Room Air Fraction of Inspired Oxygen 02/07/25 02:00 02/07/25 03:53 02/07/25 04:00 Temperature 97.6 F Pulse Rate 66 65 52 L Respiratory Rate 16 Blood Pressure 113/74 Pulse Oximetry 94 Oxygen Delivery Room Air Fraction of Inspired Oxygen 02/07/25 04:00 02/07/25 06:00 02/07/25 07:50 Temperature Pulse Rate 80 73 101 H Respiratory Rate 20 Blood Pressure Pulse Oximetry 92 Oxygen Delivery Room Air Fraction of Inspired Oxygen 02/07/25 07:50 02/07/25 08:00 02/07/25 08:00 Temperature 98.3 F Pulse Rate 101 H 66 67 Respiratory Rate 20 20 22 H Blood Pressure 143/72 H Pulse Oximetry 92 Oxygen Delivery Fraction of Inspired Oxygen 02/07/25 08:00 02/07/25 08:00 02/07/25 10:00 Temperature Pulse Rate 67 66 61 Respiratory Rate 22 H Blood Pressure Pulse Oximetry 92 Oxygen Delivery Room Air Fraction of Inspired Oxygen 21 02/07/25 12:00 02/07/25 12:00 02/07/25 12:00 Temperature 97.5 F L Pulse Rate 73 60 60 Respiratory Rate 14 14 Blood Pressure 140/56 L Pulse Oximetry 94 94 Oxygen Delivery Room Air Fraction of Inspired Oxygen 21 02/07/25 14:00 02/07/25 14:20 02/07/25 14:29 Temperature Pulse Rate 81 76 78 Respiratory Rate 20 20 Blood Pressure Pulse Oximetry Oxygen Delivery Fraction of Inspired Oxygen Intake/Output Intake/Output: Intake & Output 02/04/25 02/05/25 02/06/25 02/07/25 23:59 23:59 23:59 23:59 Intake Total 300 Balance 300 Meds/Results Medications: Active Medications Generic Name Dose Route Start Last Admin Trade Name Freq PRN Reason Stop Dose Admin Acetaminophen 650 mg 02/06/25 21:24 Acetaminophen 325 Mg Tablet PO Q4H PRN Mild Pain (1-3) or Fever Hydrocodone Bitart/Acetaminophen 1 tab 02/06/25 21:24 02/07/25 11:31 Hydrocodone/Acetaminophen (*Crx) 5-325 Mg Tablet PO 1 tab Q4H PRN Administration Moderate Pain (4-6) Albuterol 2.5 mg 02/06/25 20:00 02/07/25 14:20 Albuterol Sulfate Neb 2.5 Mg/3 Ml Inh INHALATION 2.5 mg Q6HRT BJ Administration Aspirin 81 mg 02/07/25 08:00 02/07/25 07:29 Aspirin 81 Mg Chewable Tablet PO 81 mg DAILY@0800 BJ Administration Docusate Sodium 100 mg 02/07/25 09:00 02/07/25 07:29 Docusate Sodium 100 Mg Capsule PO 100 mg BID BJ Administration Heparin Sodium (Porcine) 5,500 units 02/06/25 23:57 Heparin Sodium 5,000 Units/Ml Vial IV PUSH PRN PRN aPTT less than 55 seconds Heparin Sodium (Porcine) 3,000 units 02/06/25 23:57 Heparin Sodium 5,000 Units/Ml Vial IV PUSH PRN PRN aPTT 55 - 70 seconds Heparin Sodium/Dextrose 25,000 units in 250 mls @ 13 mls/hr 02/06/25 23:45 02/07/25 01:41 Heparin Sodium/D5w 100 Units/Ml IV CONT 1,300 units/hr .[id number] BJ 13 mls/hr Administration Protocol 1,300 UNITS/HR Ceftriaxone Sodium 1 gm/ 50 mls @ 100 mls/hr 02/07/25 00:00 02/07/25 03:08 Sodium Chloride IVPB Infused Q24H BJ Infusion Azithromycin 500 mg/ Sodium 250 mls @ 250 mls/hr 02/07/25 01:00 02/07/25 05:54 Chloride IVPB Infused Q24H BJ Infusion Magnesium Hydroxide 30 ml 02/06/25 21:24 Magnesium Hydroxide Susp 30 Ml Udc PO DAILY PRN Constipation Morphine Sulfate 2 mg 02/06/25 21:24 Morphine Sulfate (*Crx) 2 Mg/Ml Inj IV PUSH Q4H PRN Pain Rated 7-10 Radiology Results: ITS Impressions Chest X-Ray 02/06/25 14:19 IMPRESSION: Mild vascular congestion and bilateral alveolar opacities. Infection cannot be excluded. Short-term follow-up chest radiograph is recommended after appropriate clinical therapy to document resolution. Chest CTA 02/06/25 17:54 IMPRESSION: 1. No pulmonary embolism. 2. Mass seen in the right paratracheal and subcarinal areas with extension to the right hilum. Further evaluation advised. The mass is occluding the right main bronchus and causing some compression of the right pulmonary artery. 3. Atelectasis versus pneumonia versus fibrotic changes in the right lower lobe with minimal opacification of the bases suggestive of thrombosis. 4. Focal areas of tree-in-bud appearance in the right upper lobe suggestive of infection. Follow-up advised. 5. Sliding hiatus hernia. Labs Labs: Laboratory Results - last 24 hr 02/06/25 02/06/25 02/07/25 16:16 19:30 00:38 WBC 10.6 H RBC 4.58 Hgb 13.6 Hct 40.8 MCV 89.1 MCH 29.7 MCHC 33.3 RDW 13.2 Plt Count 449 H MPV 8.5 Immature Gran % (Auto) 0.3 Neut % (Auto) 65.2 Lymph % (Auto) 27.0 Marion % (Auto) 5.9 Eos % (Auto) 0.8 Baso % (Auto) 0.8 Lymph # (Auto) 2.87 Marion # (Auto) 0.6 Eos # (Auto) 0.1 Baso # (Auto) 0.1 Abs Immat Gran (auto) 0.03 Absolute Neuts (auto) 6.9 H Absolute Nucleated RBC 0.000 Nucleated RBC % 0.0 PT 13.0 INR 1.0 APTT 30.0 Sodium 132 L Potassium 4.2 Chloride 100 Carbon Dioxide 23 Anion Gap 9 BUN 7 Creatinine 0.81 Estim Creat Clear Calc 71 Estimated GFR > 60 Glucose 108 Calcium 9.9 Troponin I < 0.012 < 0.012 02/07/25 02/07/25 07:29 14:26 WBC 8.0 RBC 4.75 Hgb 14.3 Hct 43.5 MCV 91.6 MCH 30.1 MCHC 32.9 RDW 13.2 Plt Count 492 H MPV 8.8 Immature Gran % (Auto) 0.1 Neut % (Auto) 65.5 Lymph % (Auto) 25.1 Marion % (Auto) 6.8 Eos % (Auto) 1.4 Baso % (Auto) 1.1 Lymph # (Auto) 2.00 Marion # (Auto) 0.5 Eos # (Auto) 0.1 Baso # (Auto) 0.1 Abs Immat Gran (auto) 0.01 Absolute Neuts (auto) 5.2 Absolute Nucleated RBC 0.000 Nucleated RBC % 0.0 PT INR APTT 87.7 H 112.6 H Sodium 136 L Potassium 4.1 Chloride 101 Carbon Dioxide 26 Anion Gap 9 BUN 6 L Creatinine 0.77 Estim Creat Clear Calc 74 Estimated GFR > 60 Glucose 107 Calcium 9.7 Troponin I
[2025-02-07] MEDS: MORPHINE SULFATE (*CRX) 2 MG/ML INJ IV PUSH (16:00)
[2025-02-07] MEDS: HYDROcodone/acetaminophen (*CRX) 10-325 MG TABLET 1 TAB PO (20:47)
[2025-02-07] MEDS: HEPARIN SOD/D5W 100 UNITS/ML 25,000 UNITS/250 ML BAG 12 UNITS IV CONT (20:48)
--- NOTE | 2025-02-07 21:29 | PC.NURSE ---
02/07/25 at 2111- Pt discharged with [facility] to be transported to [facility]. Day shift RNRadha. had previously called report to VIRA Henson at [facility]. Pt transported with current heparin drip infusing at 12ml/hr or 1200units/hr.
--- NOTE | 2025-02-08 12:37 | P.TS_ITS ---
Transfer Discharge Sum: Prov Provider Date of admission: 02/07/25 08:21 Primary care physician: [facility] Admitting clinician: Marianne Crook MD DS: Admitting Diagnosis Discharge Date 02/07/25 Admitting Diagnosis Shortness of breath and chest pain DS: Discharge Diagnosis Discharge Diagnosis (1) Hilar mass: Code(s): R91.8 - Other nonspecific abnormal finding of lung field Status: Acute (2) Pneumonia: Code(s): J18.9 - Pneumonia, unspecified organism Status: Acute (3) Thrombus: Code(s): I82.90 - Acute embolism and thrombosis of unspecified vein Status: Acute Transfer Discharge Sum: Med Medications Active and Home Medications: Home Medications clopidogrel 75 mg tablet 75 mg DAILY 03/03/20 [History Confirmed 04/09/21] metoprolol succinate 25 mg tablet,extended release 24 hr 25 mg PO DAILY 03/03/20 [History Confirmed 04/09/21] simvastatin 20 mg tablet 20 mg DAILY 03/03/20 [History Confirmed 04/09/21] albuterol sulfate 90 mcg/actuation aerosol inhaler 2 puff inhalation QID PRN shortness of breath or wheezing #8.5 grams 08/15/24 [Rx] azithromycin 250 mg tablet (Zithromax Z-Srinivasan) See Rx Instructions PO .COMPLEX #6 tabs 08/15/24 [Rx] nitroglycerin 0.4 mg sublingual tablet mg 08/15/24 [History] prednisone 20 mg tablet 40 mg (2 x 20 mg) PO DAILY 5 days #10 tabs 08/15/24 [Rx] rosuvastatin 10 mg tablet mg 08/15/24 [History] Transfer Discharge Sum: Hosp Hospital Course Hospital course: 60-year-old female with past medical history of hypertension hyperlipidemia and GERD presents the hospital with chest pain and shortness of breath for 2 days. Patient states that the chest pain is intermittent. And shortness of breath increases with movements. Patient also complains of severe arm pain. She has full range of motion. She states that it feels better when lying on it. Patient denies nausea or vomiting. Leukocytosis at 10.1, platelets of 506, sodium 136, glucose of 125, troponins are negative, proBNP of 163, total protein of 8.4, chest x-ray shows mild vascular congestion. EKG shows sinus rhythm. Chest CT shows Mass seen in the right paratracheal and subcarinal areas with extension to the right hilum. Further evaluation advised. The mass is occluding the right main bronchus and causing some compression of the right pulmonary artery. Atelectasis versus pneumonia versus fibrotic changes in the right lower lobe with minimal opacification of the bases suggestive of thrombosis. Focal areas of tree-in-bud appearance in the right upper lobe suggestive of infection. Patient was managed for Hilar mass with pain control while awaiting transfer to higher level of care. Also for possible thrombosis in the right lower lobe of the lungs with heparin infusion, also for pneumonia with antibiotics. Patient was transferred to [facility] yesterday for higher level of care. Patient Condition: Stable Time Spent with Patient Time attestation: Total time spent providing and/or coordinating transfer services: DS: Data Data Completed and Pending Labs on day of discharge: Labs from last 24 hours 02/07/25 14:26 APTT 112.6 H
== END 2025-02-07 21:11 | disposition short-term general hospital (02) | DRG 139 ==
LOC: ANHED 19:16 → ANHIMU 20:29
PROVIDERS: Emergency Medicine; Internal Medicine; Nurse Practitioner Gerontology; Admitting Provider Internal Medicine; Emergency Provider Emergency Medicine; Visit Provider Internal Medicine
DX: J18.9 Pneumonia, unspecified organism (principal); E43 Unspecified severe protein-calorie malnutrition; R91.8 Other nonspecific abnormal finding of lung field; Z79.02 Long term (current) use of antithrombotics/antiplatelets; I10 Essential (primary) hypertension; E78.5 Hyperlipidemia, unspecified; K21.9 Gastro-esophageal reflux disease without esophagitis; F17.290 Nicotine dependence, other tobacco product, uncomplicated; R07.9 Chest pain, unspecified; I26.99 Other pulmonary embolism without acute cor pulmonale
CPT/HCPCS: 36415; 71046; 71275; 80048; 80053; 83690; 83880; 84484; 85025; 85610; 85730; 93005; 94640; 96365; 96366; 96367; 96374; 99285; A9270; G0378; G0379; J0456; J0696; J1171; J1644; J2270; J7050; Q9967